=== PATIENT | female | born 1995 | race Caucasian/White ===

== ENCOUNTER → 2022-02-08 14:13 | Outpatient (CLI) | payer BC, SELFPAY ==
--- NOTE | ~2022-02-08 | US_ITS ---
EXAMINATION: US thyroid DATE: 02/08/2022 14:34 INDICATION: Goiter TECHNIQUE: Multiple ultrasound images of the thyroid were obtained. COMPARISON: None. FINDINGS: The right thyroid lobe measures 3.9 x 1.4 x 1.6 cm. The left thyroid lobe measures 4.2 x 1.2 x 1.4 c m. 5 mm solid wider than tall hypoechoic nodule with ill-defined margins and without echogenic foci in the mid right thyroid lobe (TI-RADS 4, moderately suspicious , FNA if >=1.5 cm, annual followup is >=1 cm). There is normal echotexture, echogenicity and vascular flow throughout the thyroid gland. IMPRESSION: 1. 5 mm TI RADS 4 right thyroid nodule which is significantly below threshold for either biopsy or fo llow-up. Recommend clinical followup with repeat imaging if there are changes on physical exam. Reviewed, dictated and finalized at location A. IMPRESSION: 1. 5 mm TI RADS 4 right thyroid nodule which is significantly below threshold f or either biopsy or follow-up. Recommend clinical followup with repeat imaging if there are changes on physical exam.
== END ==
PROVIDERS: PCP Internal Medicine Endocrinology, Diabetes & Metabolism; Visit Provider Internal Medicine Endocrinology, Diabetes & Metabolism
DX: E04.9 Nontoxic goiter, unspecified (principal)
CPT/HCPCS: 76536

== ENCOUNTER 2022-12-03 18:00 | Emergency (ER) | payer OTHER, SELFPAY ==
--- NOTE | ~2022-12-03 | XR_ITS ---
EXAMINATION: XR foot RT min 3V DATE: 12/03/2022 18:20 INDICATION: Dorsal right foot pain after dropping a box on the foot TECHNIQUE: Dorsoplantar, two oblique and lateral views of the right foot were obtained. COMPARISON: None. FINDINGS: Alignment is normal. No fracture. Joint spaces are normal. Soft tissues are unremarkable. IMPRESSION: 1. Negative right foot radiographs. Reviewed, dictated and finalized at location A.
[2022-12-03 18:04] VITALS: BP 149/78; PULSE 105; RESP 17; TEMP 36.9; O2SAT 99
--- NOTE | 2022-12-03 18:05 | ED.GENADULT ---
HPI - General Adult General Chief complaint: Extremity Injury, Lower Stated complaint: R foot injury Time Seen by Provider: 12/03/22 18:04 History of Present Illness HPI narrative: Jennifer is a 27F with no know PMH that presented to the ED after she dropped a box on her foot at work. She had immediate pain and swelling. She has been able to walk. There are no other injuries. Related Data Home Medications Medication Instructions Recorded Confirmed No Home Medications 12/03/22 12/03/22 Allergies Allergy/AdvReac Type Severity Reaction Status Date / Time No Known Allergies Allergy Unverified 12/03/22 18:03 Review of Systems Review of Systems: All systems reviewed & are unremarkable except as noted in HPI and below PMFSH Past Medical History Medical History Bowel habit changes Cholecystectomy planned (~2017) Constipation Diarrhea Outcome of delivery, other multiple , all stillborn Pneumonia Swelling of ankle Tonsillectomy planned (~2001) Surgical History Surgical History History of dilatation and curettage (~2017) [place] teeth removed (~2015) Family History Family History Father Osteoarthritis Essential (primary) hypertension High cholesterol Mother Family history of thyroid problem Sibling Autoimmune disorder Sibling Heart problem Sibling Essential (primary) hypertension Social History Social History Social History: Patient has caffeine once every couple of weeks. 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 [employer] Gender identity (if verbalized by the patient): Female Sexual Orientation (if Verbalized by the Patient): Straight or Heterosexual Exam Const: General: healthy appearing and no acute distress Nutritional Appearance: well nourished Orientation/consciousness: patient oriented x3 Limitations: no limitations HENMT: Head: normal to inspection Ears: external ears normal Face/Nose/Sinus: Normal external nose present Eyes: Conjunctivae: conjunctivae normal Pupils: Equal, round and reactive pupils present EOM: EOMs intact bilaterally Neck: Neck: normal visual inspection Chest: Chest palpation & inspection: normal inspection of the chest Resp: Effort & Inspection: normal respiratory effort Cardio: Rate: regular rate Skin: General skin exam: normal color Rashes: no rashes Neuro: General: patient oriented x3 and moves all extremities Cranial nerves: Yes Nystagmus not present Extrem: Other: Bruising over the 2nd and 3rd MCP on third and fourth digit on right foot. Psych: Mental Status: mental status grossly normal Course Course Emergency Course: declined pain meds ordered radiographs EXAMINATION: XR foot RT min 3V DATE: 12/03/2022 18:20 INDICATION: Dorsal right foot pain after dropping a box on the foot TECHNIQUE: Dorsoplantar, two oblique and lateral? views of the right foot were obtained. COMPARISON: None. FINDINGS: Alignment is normal. No fracture. Joint spaces are normal. Soft tissues are unremarkable. IMPRESSION: 1. Negative right foot radiographs. Vital Signs Vital signs: Vital Signs Temperature 98.5 F 12/03/22 18:04 Pulse Rate 105 H 12/03/22 18:04 Respiratory Rate 12/03/22 18:04 Blood Pressure 149/78 H 12/03/22 18:04 Pulse Oximetry 99 12/03/22 18:04 Oxygen Delivery Room Air 12/03/22 18:04 Temperature 98.5 F 12/03/22 18:04 Pulse Rate 105 H 12/03/22 18:04 Respiratory Rate 17 12/03/22 18:04 Blood Pressure 149/78 H 12/03/22 18:
[2022-12-03 18:50] VITALS: BP 138/73; PULSE 96; RESP 16; TEMP 36.9; O2SAT 100
== END 2022-12-03 18:53 | disposition home or self-care (01) ==
LOC: CHSED 18:50
PROVIDERS: Emergency Provider Family Medicine; PCP Internal Medicine Endocrinology, Diabetes & Metabolism
DX: S90.31XA Contusion of right foot, initial encounter (principal); W20.8XXA Other cause of strike by thrown, projected or falling object, initial encounter; Y92.9 Unspecified place or not applicable; Y99.0 Civilian activity done for income or pay
CPT/HCPCS: 73630; 99283

== ENCOUNTER 2023-08-01 07:18 | Outpatient (CLI) | payer OTHER, SELFPAY ==
[2023-08-01 07:40] LABS: Basophils Absolute Auto 0.03 K/mm3 (0.00-0.10); Basophils Percent Auto 0.5 % (0.0-1.0); Eosinophils Absolute Auto 0.17 K/mm3 (0.02-0.50); Eosinophils Percent Auto 2.9 % (1.0-6.0); Immature Granulocyte Absolute 0.02 K/mm3 (0.00-0.00); Immature Granulocyte Percent A 0.3 % (0.0-0.0); Lymphocytes Percent Auto 30.4 % (18.0-42.0); Mean Corpuscular HGB Conc 33.3 g/dL (32.0-36.0); Mean Corpuscular Hemoglobin 27.6 pg (27.0-31.0); Mean Corpuscular Volume 82.8 fL (78.0-102.0); Mean Platelet Volume 10.2 fl (9.2-11.8); Monocytes Absolute Auto 0.29 K/mm3 (0.10-0.90); Monocytes Percent Auto 4.9 % (2.0-11.0); Neutrophils Absolute Auto 3.6 K/mm3 (1.7-7.2); Platelet Count Result 190 K/mm3 (150-420); Red Blood Count 4.71 M/mm3 (4.20-5.40); White Blood Count 5.9 K/mm3 (4.8-10.8)
[2023-08-01 07:56] LABS: Hemoglobin A1C 4.8 % (<5.7)
[2023-08-01 08:22] LABS: Thyroid Stimulating Hormone Reflex 1.54 u/IU/mL (0.36-3.74)
[2023-08-07 05:52] LABS: Progesterone 0.5 ng/mL (***)
== END 2023-08-01 07:19 | disposition home or self-care (01) ==
PROVIDERS: PCP Family Medicine
DX: E66.01 Morbid (severe) obesity due to excess calories (principal); L65.9 Nonscarring hair loss, unspecified; Z31.9 Encounter for procreative management, unspecified; Z68.42 Body mass index [BMI] 45.0-49.9, adult
CPT/HCPCS: 36415; 83036; 84144; 84443; 85025

== ENCOUNTER 2023-11-19 07:14 | Outpatient (CLI) | payer OTHER, SELFPAY ==
[2023-11-19 08:02] LABS: Hemoglobin A1C < 4.7 % (<5.7)
[2023-11-19 08:19] LABS: Thyroid Stimulating Hormone 1.27 uIU/mL (0.36-3.74)
[2023-11-24 18:03] LABS: Anti Mullerian Hormone,Female 1.41 ng/mL (0.69-13.39)
== END 2023-11-19 07:15 | disposition home or self-care (01) ==
LOC: CHSLAB 07:20
PROVIDERS: PCP Family Medicine
DX: Z13.1 Encounter for screening for diabetes mellitus (principal); Z13.29 Encounter for screening for other suspected endocrine disorder; Z31.41 Encounter for fertility testing
CPT/HCPCS: 36415; 83036; 84443

== ENCOUNTER 2023-12-31 15:58 | Emergency (ER) | payer OTHER, SELFPAY ==
--- NOTE | ~2023-12-31 | XR_ITS ---
EXAMINATION: XR ankle RT min 3V, XR foot RT min 3V DATE: 12/31/2023 16:25 INDICATION: Right foot and ankle injury post fall 3 days prior TECHNIQUE: 1. Anteroposterior, mortise, additional oblique and lateral view of the right ankle were obtained. 2. Dorsoplantar, two oblique and lateral views of the right foot were obtained. COMPARISON: None. FINDINGS: Alignment of the right foot and ankle is normal. No fracture. Small subarticular lucency along the me dial rim of the talar dome with relatively preserved joint space which would favor an osteochondral l esion or degenerative subchondral cyst. Minimal to mild osteoarthritis at the first metatarsophalange al and fifth tarsal metatarsal joints. No ankle joint effusion. Diffuse soft tissue swelling with sub cutaneous edema about the ankle. IMPRESSION: 1. No acute osseous abnormality. 2. Subarticular lucency along the medial margin of the talar dome consistent with likely chronic oste ochondral lesion. Reviewed, dictated and finalized at location B. IMPRESSION: 1. No acute osseous abnormality. 2. Subarticular lucency along the medial margin of the talar dome consistent wi th likely chronic osteochondral lesion.
[2023-12-31 16:12] VITALS: BP 125/76; PULSE 55; RESP 16; TEMP 36.7; O2SAT 100
--- NOTE | 2023-12-31 16:13 | ED.LOWEXIN ---
HPI - Extremity Injury (Lower) General Chief Complaint: Extremity Injury, Lower Stated Complaint: R FOOT INJURY Source: patient Mode of arrival: ambulatory Limitations: no limitations History of Present Illness HPI Narrative: 28 y/o female presented for c/o right foot/ankle pain, swelling and bruising after injury 3 days ago. states she fell through wooden stairs, says she was on the last few. Has been ambulating but reports a limp. Swelling worsens throughout the day. Has been trying to elevate and ice. Rates pain /10. denies decreased ROM, numbness, tingling, weakness or deformity. Not taking anything for pain. Denies other injury. Related Data Home Medications Medication Instructions Recorded Confirmed No Home Medications 12/03/22 12/03/22 Allergies Allergy/AdvReac Type Severity Reaction Status Date / Time No Known Allergies Allergy Unverified 12/03/22 18:03 Review of Systems Review of Systems: CONSTITUTIONAL: Denies body aches, fever, chills CARDIOVASCULAR: Denies chest pain, palpitations, or edema. RESPIRATORY: Denies cough or dyspnea. SKIN: Denies rash, itching, or wounds. MUSCULOSKELETAL: right ankle pain and swelling NEUROLOGIC: Denies headache, numbness, tingling, or weakness. All systems reviewed & are unremarkable except as noted in HPI and below PMFSH Past Medical History Medical History Bowel habit changes Cholecystectomy planned (~2017) Constipation Diarrhea Outcome of delivery, other multiple , all stillborn Pneumonia Swelling of ankle Tonsillectomy planned (~2001) Surgical History Surgical History History of dilatation and curettage (~2017) [place] teeth removed (~2015) Family History Family History Father Osteoarthritis Essential (primary) hypertension High cholesterol Mother Family history of thyroid problem Sibling Autoimmune disorder Sibling Heart problem Sibling Essential (primary) hypertension Social History Social History Social History: Patient has caffeine once every couple of weeks. 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 Please see nursing chart for further information. There is no relevant family history pertinent to the presenting complaint Exam Narrative: GENERAL: Well-appearing CHEST: Speaks in full sentences. No respiratory distress. HEART: Regular rate and rhythm. Normal and equal peripheral pulses. EXTREMITIES: Pain reported to posterior/lateral right ankle, tender with palpation over lateral malleolus. Moderate ecchymosis noted from lower lateral leg to lateral foot. Swelling to lateral ankle. Right foot and ankle has normal strength and sensation, normal range of motion with flexion/extension/rotation of ankle. No open wounds, or obvious deformity; alignment normal, pulse palpable and equal bilaterally, skin warm, dry, pink. Capillary refill less than 3 seconds. SKIN: Warm, dry NEURO: Alert and oriented x3. PSYCH: Normal mood and affect Course Course Emergency Course: Patient is aware of diagnosis, understands and agrees to treatment plan. Anticipatory guidance given. Patient agrees to follow-up as directed and is aware of reasons to seek care at the emergency department. Portions of
== END 2023-12-31 16:44 | disposition home or self-care (01) ==
PROVIDERS: Emergency Provider Nurse Practitioner Family
DX: S93.401A Sprain of unspecified ligament of right ankle, initial encounter (principal); S96.911A Strain of unspecified muscle and tendon at ankle and foot level, right foot, initial encounter; W13.8XXA Fall from, out of or through other building or structure, initial encounter
CPT/HCPCS: 73610; 73630; 99213; G0463

== ENCOUNTER 2024-02-07 15:29 | Outpatient (CLI) | payer OTHER, SELFPAY | END 2024-02-07 15:30 | disposition home or self-care (01) | DX: Z32.00 Encounter for pregnancy test, result unknown (principal) | CPT/HCPCS: 36415; 84702 ==

== ENCOUNTER 2024-02-12 15:43 | Outpatient (CLI) | payer OTHER, SELFPAY | END 2024-02-12 15:44 | disposition home or self-care (01) | LOC: CHSLAB 15:48 | DX: Z32.00 Encounter for pregnancy test, result unknown (principal) | CPT/HCPCS: 36415; 84702 ==

== ENCOUNTER 2024-04-03 07:20 | Outpatient (CLI) | payer OTHER, SELFPAY ==
[2024-04-03 07:43] LABS: Hematocrit 34.4 % (35.0-49.0); Hemoglobin 12.4 g/dL (12.0-15.0); Mean Corpuscular Hemoglobin 30.2 pg (27.0-31.0); Mean Corpuscular Volume 83.7 fL (78.0-102.0); Mean Platelet Volume 10.6 fl (9.2-11.8); Platelet Count Result 145 K/mm3 (150-420); Red Blood Count 4.11 M/mm3 (4.20-5.40); Red Cell Distribution Width 13.9 % (11.6-14.4); White Blood Count 5.4 K/mm3 (4.8-10.8)
[2024-04-03 08:41] LABS: Hemoglobin A1C 4.8 % (<5.7)
[2024-04-03 10:19] LABS: Alanine Aminotransferase 32 U/L (14-59); Albumin Level 2.8 g/dL (3.4-5.0); Alkaline Phosphatase 70 U/L (46-116); Anion Gap 11 mmol/L (4-12); Aspartate Amino Transferase 16 U/L (15-37); Bilirubin,Total 0.5 mg/dL (0.00-1.00); Blood Urea Nitrogen 5 mg/dL (7-18); Calcium 8.5 mg/dL (8.5-10.1); Carbon Dioxide 22 mmol/L (21-32); Chloride 102 mmol/L (98-108); Cholesterol 234 mg/dL (0-200); Estimated Glomerular Filt Rate > 60; Glucose 102 mg/dL (70-99); HDL Direct 59 mg/dL (40-60); LDL Cholesterol Calculated 136 mg/dL (<130); Osmolality Calculated 277 mOsm/kg (285-295); Potassium 3.4 mmol/L (3.5-5.1); Sodium 135 mmol/L (136-145); Thyroid Stimulating Hormone 1.31 uIU/mL (0.36-3.74); Total Protein 6.1 g/dL (6.4-8.2); Triglycerides 197 mg/dL (0-150)
[2024-04-03 10:27] LABS: HIV 1 P24 AG Negative (Negative); HIV 1/2 AB Negative (Negative)
[2024-04-04 10:28] LABS: Hepatitis B Surface Antigen NON-REACTIVE (NON-REACTIVE); Hepatitis C Virus Antibody NON-REACTIVE (NON-REACTIVE)
[2024-04-05 11:09] LABS: TSH QUEST 1.36 mIU/L
[2024-04-06 18:44] LABS: RPR Screen NON-REACTIVE (NON-REACTIVE)
[2024-04-07 03:53] LABS: Rubella IgG Antibody 1.64 Index
[2024-04-07 23:49] LABS: Varicella IgM Antibody 0.83
[2024-04-11 19:19] LABS: Varicella IgG Antibody <1.00 S/CO
== END 2024-04-03 07:21 | disposition home or self-care (01) ==
PROVIDERS: Visit Provider Family Medicine
DX: E66.01 Morbid (severe) obesity due to excess calories (principal); Z79.899 Other long term (current) drug therapy; Z13.220 Encounter for screening for lipoid disorders
CPT/HCPCS: 36415; 80053; 80061; 83036; 84443; 84481; 85027; 86376; 86592; 86762; 86787; 86803; 86850; 86900; 86901; 87340; 87806

== ENCOUNTER 2024-07-04 07:25 | Outpatient (CLI) | payer OTHER, SELFPAY | END 2024-07-04 07:26 | disposition home or self-care (01) | PROVIDERS: PCP Family Medicine | DX: Z34.80 Encounter for supervision of other normal pregnancy, unspecified trimester (principal) | CPT/HCPCS: 36415; 86850; 86900; 86901 ==

== ENCOUNTER 2024-07-10 07:12 | Outpatient (CLI) | payer OTHER, SELFPAY ==
[2024-07-10 08:34] LABS: Hematocrit 32.3 % (35.0-49.0); Hemoglobin 11.1 g/dL (12.0-15.0); Mean Corpuscular HGB Conc 34.4 g/dL (32-36); Mean Corpuscular Hemoglobin 29.9 pg (27.0-31.0); Mean Corpuscular Volume 87.1 fL (78.0-102.0); Mean Platelet Volume 10.5 fl (9.2-11.8); Platelet Count Result 150 K/mm3 (150-420); Red Blood Count 3.71 M/mm3 (4.20-5.40); Red Cell Distribution Width 12.9 % (11.6-14.4); White Blood Count 6.5 K/mm3 (4.8-10.8)
[2024-07-10 09:42] LABS: Glucose 1 Hour PP 50gm Dose 102 mg/dL (70-130)
== END 2024-07-10 07:13 | disposition home or self-care (01) ==
LOC: CHSLAB 07:16
PROVIDERS: PCP Family Medicine
DX: Z34.80 Encounter for supervision of other normal pregnancy, unspecified trimester (principal)
CPT/HCPCS: 36415; 82947; 85027; 86592

== ENCOUNTER 2024-12-17 19:16 | Emergency (ER) | payer OTHER, SELFPAY ==
--- NOTE | ~2024-12-17 | XR_ITS ---
XR ankle RT min 3V Ordering provider: Stan Alston MD History: . leg and ankle injury . Comparison: None. FINDINGS: BONES: No acute fracture or dislocation. Lucency seen in the medial aspect of the talus which may ind icate osteoid osteoma versus osteochondral lesion JOINT SPACES: Normal. SOFT TISSUES: Normal. IMPRESSION: No acute osseous abnormality of the right ankle. Lucency in the medial aspect of the dome of the talus. Differential include osteoid osteoma and osteo chondral lesion. Reviewed, dictated and finalized at location A. IMPRESSION: No acute osseous abnormality of the right ankle. Lucency in the medial aspect of the dome of the talus. Differential include ost eoid osteoma and osteochondral lesion.
--- NOTE | ~2024-12-17 | XR_ITS ---
XR tibia fibula RT 2V Ordering provider: Stan Alston MD History: . right leg and ankle injury . Comparison: None. FINDINGS: BONES: No acute fracture or dislocation. Lucency in the dome of the talus medially. JOINT SPACES: Normal. SOFT TISSUES: Normal. IMPRESSION: No acute osseous abnormality right leg. Lucency in the dome of the talus. Reviewed, dictated and finalized at location A.
--- OUTSIDE RECORDS SUMMARY | 2024-12-17 19:18 | XMS_ITS | Clinical Summary ---
Author Organization [facility] Address [facility] [place] [address] Care Team Providers Care Sales Analytics Manager Name Role Phone Lenny Mckee MD Unavailable [phone] Mark Flores MD Primary Care Provider [phone] Allergies Active Allergy Reactions Criticality Noted Date Comments Adhesive Rash Medium 10/14/2024 Medications [id number] c acid 29 mg iron- 1 mg tablet,chewable Take by mouth Active acetaminophen 500 mg capsule Take 2 capsules (1,000 mg total) by mouth every 6 (six) hours as needed for pain 60 tablet 5 Active docusate sodium (COLACE) 100 mg capsuleIndicati ons:constipatio n,Stool Softener Take 1 capsule (100 mg total) by mouth 2 (two) times a day as needed for constipation 30 capsule 5 Active ibuprofen (ADVIL,MOTRIN) 600 mg tabletIndicatio ns:Cramps Take 1 tablet (600 mg total) by mouth every 6 (six) hours as needed for pain 60 tablet 5 Active polyethylene glycol (MIRALAX) 17 gram/dose bulk powder Take 17 g by mouth daily as needed (constipation) 289 g 5 Active Active Problems Problem Noted Date Diagnosed Date Encounter for induction of labor 10/14/2024 Overview (10/14/2024): Georgie Mercado is a 29 y.o. female at 39w1d who is dated by LMP and is being admitted for an elective induction of labor. Admit to L&D: Labs: CBC and T&S pending. Induction of labor with pitocin. Titrate according to protocol. Desires epidural. FWB: Continuous monitoring. tracing category I. EFW: 3118g, 74% (09/24), placenta anterior, no previa ID: 3rd trimester HIV (>28 wga) negative on 09/24. GBS negative on 09/24 . RPR on admission: pending. History of genital HSV or HSV 1/2 seropositivity: No. Membrane Status: intact. PNL: Rh [pos], Ab [neg], Rubella [Imm], Varicella [Nonimm], HIV [NR], RPR [NR], HepBSAg [NR], Hep C [NR], GC/CT [neg/neg] Indications for UDS: none. Verbal consent obtained for UDS: Not indicated. MOF: Plans to breastfeed. Urine drug screen not indicated. Patient informed of results: N/A. MOC: Not currently interested in contraception, this was conceived via Letrozole. Pain management: Desires epidural. Post DVT prophylaxis: The patient has the following MAJOR risk factors BMI >/= 40 and the following MINOR risk factors none. enoxaparin 40 mg daily will be ordered for VTE prophylaxis . care following vaginal delivery 10/14 Overview (10/16/2024): # ID: Afebrile. No signs/symptoms of infection. #VZV NI: varivax given 10/15. # Heme: Hgb 10.6> QBL 347 mL. Hemodynamically stable. # CV/Pulm: Elevated BPx2, not meeting criteria for gHTN. One MR BP on arrival but in setting of wrong size cuff, other intrapartum during pushing. # GI/: Tolerating PO. Voiding spontaneously. # Pain: Controlled with above regimen. # MOC: Declines s/p counseling. # MOF: . Urine drug screen not indicated. Patient informed of results: N/A. # Post DVT prophylaxis: The patient has the following MAJOR risk factors BMI >/= 40 and the following MINOR risk factors none. enoxaparin 40 mg BID ordered for VTE prophylaxis. # Disposition: Follow up to be scheduled with primary OB. Desires discharge home today. Service Coverage These phones are service phones and carried 28/01 in house: R1 (first call) [phone] R1 alt (second call) [phone] R4 (Chief) [phone] Supervision of other normal , antepartu m 03/30/2024 Overview (10/08/2024): -2018-IUFD @ 22wks, D&E--records in media, no abnormalities noted -SHIKHA pt, ?LTZ -BMI >40 -serial growths @ 28 wks-->scheduled -NSTs weekly @ 34 wks-->scheduled -PT endorses her sister's main heart vessels switched and needed surgery-for echo, normal on 07/23 -VZV NI -mild gTCP @ NOB plts 145K -mild kidney dilation noted @ 28wks, @ 32wks The left renal pelvis measures 8.1 mm, consistent with UTDA1 -- needs a evaluation. IOL sched 10/14/24 @ 0800, pt aware [x] Initial BMI: 45.26 [x] Labs: completed [x] Genetic Screening: considering cfdna-->did not pursue [x] Baby ASA: yes @ 12wks [x] 1hr GCT at 24-28wks: 102 [x] Tdap (27-36wks): 07/30/2024 [x] Flu Shot: received at work 04/15/24 [] RSV Vaccine in season (32.0-36.6): out of season [x] COVID vaccine: Vaccinated, counseled on updated vaccine [] Rhogam (if Rh neg): n/a A+ [x] GBS at 36 wks: neg [x] [x] control method: declines [x] 39 weeks discussion of IOL vs. Expectant management: 39wk IOL [x] Mode of delivery: anticipate [] For C/S bottle of CHG 4% and hand out provided @ 36wks Girl, , has family ped Teaching: [x] 1st visit [x] 28-30 week [x] 36 week HPV Vaccine counseling (<=26 yo): [] Completed vaccine series [] To be ordered prior to discharge on [] To receive at visit [] Declined s/p counseling [x] Not applicable Initial BMI 40-50 (gestational weight goal <15lbs) 1st visit: [x] Early HgbA1c and TSH [] Order specialized anatomy for 20-22wks [] 1mg folic acid and ASA @ 12wks [] ISAURO eval (referral if indicated) [] Discuss risks and limitations of cfDNA 3rd trimester/delivery: [] 28wk glucola [] Serial growth US (q4wks) @ 28wks [] Weekly NSTs @ 34wks [] 39 wk delivery recommended [] 2g or 3g Ancef (dependent on weight @ delivery) : [] Nutrition/exercise counseling (dot phrase ACOGHEALTHYEATING and dot phrase ACOGEXERCISEAFTERPREGNANCY) Assessment & Plan (04/01/2024 1:41 PM CDT): - TAUS for viability completed today - labs ordered - Pap smear NILM 08/2020, screening performed today - GC/CT/trichomonas offered and declined - [place] Depression Scale Total: 0 - Reviewed criteria for ASA 81mg: Minor Criteria (2+ required for Dx): Obesity (BMI > 30) and Previous adverse outcome - Flu and Covid vaccination recommendations reviewed, is planning on getting labs through work - Genetic testing options reviewed, recommended NIPT, considering, would like to discuss with - Specialized anatomy US ordered and plan for echo based on family hx - Education on care and expectations also provided by OB RN Krystal Hair loss 07/15/2023 Overview (07/15/2023): - patient reports 1 year of hair loss, starting around time of last delivery - also reports abnormal thyroid testing with PCP, unable to visualize results - Discussed normal hair loss and that it can persist up to 1 year after delivery - Will assess with TSH given other symptoms (fatigue, weight changes) 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 She has never had a pelvic US outside of to assess for PCOM and is not interested in pursuing formal PCOS diagnosis at this time. Plan - clomid 50 daily on cycle days 5-9 - Will order TSH, CBC, and progesterone to confirm ovulation. Counseled patient to present for lab draw 7-10 days after ovulation. - continue vitamin Morbid obesity with BMI of 45.0-49.9, adult ([facility]) 08/12/2020 Overview (07/15/2023): - BMI 45 at visit on 07/15/23 - Will assess A1c given TTC Assessment & Plan (04/01/2024 1:20 PM CDT): Plan for baseline labs with labs Monitor weight gain in the Growth US starting at 28 weeks, NSTs at 34 wks Plan for IOL at 39 wks Resolved Problems Problem Noted Date Diagnosed Date Resolved Date Normal labor and delivery 06/12/2022 Overview (06/12/2022): 1. Induction of labor for DFM at term: Admit to L&D. Consents signed and placed in chart. Labs: CBC, Type Pending. Induction of labor with cervidil. 2. FWB: Continuous monitoring. tracing category II, reassured by accelerations 3. ID: 3rd trimester HIV (>28 wga) pending on 04/12/2022. GBS negative on 05/24/2022. RPR on admission: pending. Membrane Status: intact. 4. Indications for UDS: unexplained demise. Verbal consent obtained for UDS: Not indicated 5. MOF: Plans to breastfeed. Urine drug screen not indicated. Patient informed of results: N/A 6. MOC: Undecided on contraception. 7. Pain management: Desires epidural when indicated. 8. Post DVT prophylaxis: The patient has the following MAJOR risk factors BMI >/= 40 and the following MINOR risk factors none. enoxaparin 40 mg daily will be ordered for VTE prophylaxis . 9. COVID Vaccine Status: Not assessed 10. COVID Test Status: Test not indicated 11. IUFD at 22 weeks 12. Rhino virus + 06/07/2022 care following vaginal delivery 06/12/2022 07/25/2022 Overview (06/14/2022): # ID: Afebrile. No signs/symptoms of infection. #COVID-19: Test not indicated #Rubella NI: for PP MMR #Varicella NI: For PP Varivax # Heme: EBL 700 mL. No symptoms acute blood loss anemia. # CV/Pulm: Vital signs stable, within normal limits. # GI/: Tolerating PO. Voiding spontaneously. # Pain: Controlled with above regimen. # Post DVT prophylaxis: The patient has the following MAJOR risk factors BMI >/= 40 and the following MINOR risk factors none. enoxaparin 40 mg BID to be ordered for VTE prophylaxis PPD1. # MOC: Progestin-only pills # MOF: . Urine drug screen not indicated. Patient informed of results: N/A. # COVID Vaccination Status: Previously received # Disposition: Follow up task not sent. Desires discharge home today. Supervision of other normal , antepartum 11/13/2021 07/25/2022 Overview (06/07/2022): -2018-IUFD @ 22wks, D&E--records in media, no abnormalities noted -Rubella non-immune Varicella non-immune -BMI >40 -serial growth's 28 wks, 41% 04/12, next growth 06/07 -NST's weekly @ 34 wks -PT endorses her sister's main heart vessels switched and needed surgery - echo ordered, declined to schedule when echo team reached out -IOL sched 06/14/2022 @ 2100, pt aware [x] Initial BMI: 46.56 protocol below [x] Labs: complete [x] Genetic Screening: declines [x] Baby ASA: @ 12 weeks [x] 1hr GCT at 24-28wks: nml, 108 [x] Tdap (27-36wks): MJ 04/12/22 [x] Flu Shot: 04/12/22 [x] COVID vaccine: complete per report, NO booster [] Rhogam (if Rh neg): N/A A+ [x] GBS at 36 wks:Negative [x] [] control method: [x] 39 weeks discussion of IOL vs. Expectant management: 39wk IOL [x] Mode of delivery: anticipate [] For C/S bottle of CHG 4% and hand out provided @ 36wks , boy, circ+, [facility] pediatrics Teaching: [x] 1st visit [x] 28-30 week [x] 36 week Initial BMI 40-50 (gestational weight goal <15lbs) 1st visit: [x] Early HgbA1c and TSH [x] Order specialized anatomy for 22wks [x] 1mg folic acid and ASA @ 12wks [x] ISAURO eval (not indicated)- confirms rare snoring and never stops breathing at night [x] Discuss risks and limitations of cfDNA- declines testing 3rd trimester/delivery: [x] 28wk glucola [x] Serial growth US (q4wks) @ 28wks [x] Weekly NSTs @ 34wks [] 39 wk delivery recommended [] 2g or 3g Ancef (dependent on weight @ delivery) : [x] Nutrition/exercise counseling (dot phrase ACOGHEALTHYEATING and dot phrase ACOGEXERCISEAFTERPREGNANCY) Irregular periods 08/12/2020 08/03/2021 Encounters Date Type Department Care Team Description 10/22/2024 Telephone [facility] Obstetrics and Gynecology [address] [facility] [address] [address] [place] [address] Dharmesh Moreno, ALICIA OB concern 10/16/2024 Telephone [facility] Obstetrics and Gynecology [address] [facility] [address] [facility] [address] [place] [address] Kayy Valencia 10/14/2024 2:01 PM CDT Anesthesia Event [address] [address] Malachi Petersen MD Schappe, Elizabedanie Urban, GAVIN 10/14/2024 8:30 AM CDT - 10/16/2024 6:12 PM CDT Hospital Encounter [address] [phone] Key Louie MD Whelan, MD Nathan Barnes, Santana Munoz MD Discharge Disposition: Discharge to home or self care 10/12/[address] [address] Virgie Dunn RN Outgoing Call 10/08/2024 10:00 AM CDT Clinical Support [facility] Obstetrics and Gynecology [address] [place] [address] 10/08/2024 9:45 AM CDT Office Visit [facility] Obstetrics and Gynecology [address] [place] [phone] Supervision of other normal , antepartum (Primary Dx); 38 weeks gestation of 10/08/2024 9:00 AM CDT Clinical Support [facility] Obstetrics and Gynecology [address] [place] [phone] Supervision of other normal , antepartum (Primary Dx); Morbid obesity with BMI of 45.0-49.9, adult (CMS/HCC) (HCC) 10/01/2024 3:30 PM CDT Office Visit [facility] Obstetrics and Gynecology [address] [place] [phone] Supervision of other normal , antepartum (Primary Dx) 10/01/2024 3:00 PM CDT Clinical Support [facility] Obstetrics and Gynecology [address] [place] [phone] Morbid obesity with BMI of 45.0-49.9, adult (CMS/HCC) (HCC) (Primary Dx); Supervision of other normal , antepartum 09/27/2024 Results Follow-Up [address] [place] [address] Jani Licona MD Group B streptococcal culture Vaginal/Rectal 09/24/2024 1:56 PM CDT - 09/24/2024 11:59 PM CDT Hospital Encounter [facility] [address] [place] [address] Supervision of other normal , antepartum Discharge Disposition: Discharge to home or self care 09/24/2024 12:35 PM CDT Lab [facility] [address] [place] [phone] Supervision of other normal , antepartum 09/24/2024 11:45 AM CDT Office Visit [facility] Obstetrics and Gynecology [address] [place] [address] Health 7th Floor [address] [place] [phone] Supervision of other normal , antepartum (Primary Dx); Other obesity affecting in third trimester; 36 weeks gestation of 09/24/2024 10:51 AM CDT - 09/24/2024 11:59 PM CDT Hospital Encounter [facility] Outpatient [facility] - Ultrasound [address] [place] [address], 7th Floor, [address] [place] [address] Supervision of other normal , antepartum Discharge Disposition: Discharge to home or self care 09/24/2024 Results Follow-Up [facility] [address] [place] [address] Jani Licona MD HIV 1/2 Antibody plus p24 Antigen Blood, CBC without differential 09/17/2024 9:30 AM CDT Clinical Support [facility] Obstetrics and Gynecology [address] [place] [address] [address]th [place] [address] History of IUFD (Primary Dx); Supervision of other normal , antepartum; Morbid obesity with BMI of 45.0-49.9, adult (CMS/HCC) ([facility]) from Last 3 Months Immunizations Immunization Administration Dates Next Due Influenza, Quadrivalent, Blaire l Culture-based MDCK, Preservative Free, Antibiotic Free, Intramuscular 04/12/2022 Influenza, Trivalent, High D ose, Split, Preservative Free, Intramuscular 07/08/2014 MMR 06/14/2022 Tdap 07/30/2024,04/12/2022 Varicella 10/15/2024,06/14/2022 Surgical History Surgery Date Site/Laterality Comments WISDOM TOOTH EXTRACTION 07/08/2014 - 07/07/2015 DILATION AND CURETTAGE OF UTERUS 07/08/2017 - 08/07/2017 at time of delivery of IUFD CHOLECYSTECTOMY 07/08/2017 - 07/07/2018 [facility] [place] History Medical History Date Comments Palpitation History of IUFD Thyroid disease Ovarian cyst Gallstones Family History Medical History Relation Name Comments Hypertension Father Osteoporosis Father Diabetes Mother Hypertension Mother Obesity Mother Blood Clot Other Heart disease Other Relation Name Status Comments Father Mother Other Social History Tobacco Use Types Packs/Day Years Used Date Smoking Tobacco: Never Smokeless Tobacco: Never Tobacco Cessation:Counseling Given: Not Answered Alcohol Use Standard Drinks/Week Comments Yes 0 (1 standard drink = 0.6 oz pur e alcohol) social [employer] Utilities Answer Date Recorded In the past 12 months has [employer], gas, oil, or water [employer] threatened to shut off services in your home? No 10/15/2024 Social Connection and Isolat ion Panel [NHANES] Answer Date Recorded In a typical week, how many times do you talk on the phone with family, friends, or neighbors? More than three times a week 10/15/2024 How often do you get togethe r with friends or relatives? Three times a week 10/15/2024 How often do you attend [facility] or gnosticism services? Never 10/15/2024 Do you belong to any clubs o r organizations such as moravian groups, unions, fraternal or athletic groups, or school groups? No 10/15/2024 How often do you attend meet ings of the clubs or organizations you belong to? Never 10/15/2024 Are you , , di vorced, , never , or living with a partner? 10/15/2024 AUDIT-C Answer Date Recorded Q1: How often do you have a drink containing alcohol? Never 04/01/2024 Q2: How many drinks containi ng alcohol do you have on a typical day when you are drinking? Patient does not drink Q3: How often do you have si x or more drinks on one occasion? Never 04/01/2024 Overall Financial Resource Strain (CARDIA) Answe r Date Recorded How hard is it for you to pa y for the very basics like food, housing, medical care, and heating? Not hard at all 10/15/2024 Hunger Vital Sign Answer Date Recorded Within the past 12 months, y ou worried that your food would run out before you got the money to buy more. Never true 10/16/19 25 Within the past 12 months, t he food you bought just didn't last and you didn't have money to get more. Never true 10/15/2024 PRAPARE - Transportation Answer Date Re corded In the past 12 months, has l ack of transportation kept you from medical appointments or from getting medications? No 10/06 In the past 12 months, has l ack of transportation kept you from meetings, work, or from getting things needed for daily living? No 10/15/2024 Housing Stability Vital Sign Answer Jcarlos e Recorded In the last 12 months, was t here a time when you were not able to pay the mortgage or rent on time? No 06/13/2022 In the last 12 months, how many places have you lived? 1 06/13/2022 In the last 12 months, was t here a time when you did not have a steady place to sleep or slept in a alf (including now)? No 06/13/2022 [place] Depression Scale Answer Date Recorded [place] Depression Scale Total 0 04/01/2024 The thought of harming myself has occurred to me . Never 04/01/2024 Housing Stability Vital Sign Answer Jcarlos e Recorded In the last 12 months, was t here a time when you were not able to pay the mortgage or rent on time? No 10/15/2024 In the past 12 months, how m any times have you moved where you were living? 0 10/15/2024 At any time in the past 12 m [facility], were you homeless or living in a alf (including now)? No 10/15/2024 Personal Safety Answer Date Recorded Have you ever been in or are you currently in a harmful physical or emotional relationship or is someone making you feel afraid or unsafe? 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 Not on file Not on file Not on file Obstetrics History Para Term AB IAB SAB Ectopic Multiple Livin g Live Births 3 3 2 1 0 0 0 0 0 2 2 Date Outcome GA Total Labor Labor/2nd/3rd Weight Sex Type Anes PTL Earline A1 A5 Name Clin 2018 22w 0d F D&E Demis e 2021 Term 39w 0d 0h 40m 0h 34m/0h 06m 3.03 kg (6 lb 10.9 oz) M Vag-Sp ont Epidur al N Livin g 8 8 WRIGL EYHEM Michelle STREETER, Bee Parnell MD Complications: Intolera nce Delivery Location:[facility] ([facility]) 2024 Term 39w 1d 0h 11m 0h 03m/0h 08m 3.37 kg (7 lb 6.9 oz) M Vagina l Epidur al N Livin g 8 9 GirlJ illia n Wrigl ey Heman n Zuhair raphael, Arelis ballard MD Delivery Location:[facility] ([facility]) Comments 2021-TS- baby boy Magdalena y presented with DFM. complicated by history of 22 week IUFD, RNI, VNI, BMI 46. 2nd degree lacs [id number] baby girl Ela ebl 300 2nd degree tear Summary Episode Dates Number of Fetuses Estimated Date of Delivery 03/30/2024 - Present (12/17/2024) 1 10/20/2024 (based on Alternate DENY Entry) Dating Summary Based On DENY GA Diff Last Menstrual Period on 09/15/2023 06/21/2024 +17w2d Alternate DENY Entry 10/20/2024 Working Comment:Date entered prior t o episode creation Vitals Pregravid Weight Height TWG (As of 12/17/2024) Pregrav id BMI 123.4 kg (272 lb) 165 cm (5' 4.96) 1.622 kg (3 lb 9.2 oz) 45.32 Date GA Fund Present FHR Mvmt BP Weight Edema Alb Glu Ket Dil/ Eff/Sta 4 21w2d Inpatient data not displayed here. See encounter summary. 5 28w2d Inpatient data not displayed here. See encounter summary. 5 32w2d Inpatient data not displayed here. See encounter summary. 5 36w2d Inpatient data not displayed here. See encounter summary. 5 39w1d Inpatient data not displayed here. See encounter summary. Notes Progress Notes - Hospital En counter - 10/16/2024 - GA:39w1d 10/16/2024 - 39w1d - Rocío Banda NP Post Progress Note Admission Date: 10/14/2024 SUBJECTIVE Georgie Mercado is a 29 y.o. day 2 s/p Vaginal. Pain: Controlled Bleeding: lochia minimal Oral Intake: taking regular diet Voiding: without difficulty Bowel function: flatus and bowel movement Ambulating: yes Mood: stable Feeding: No acute events overnight. Denies MICHELE, visual changes, chest pain, SOB, or RUQ pain. Denies lightheaded or dizziness. Patient reports feeling well and denies concern for discharge today. OBJECTIVE Vitals: Temp Min: 36.6 C (97.9 F) Max: 36.9 C (98.4 F) Pulse Min: 83 Max: 91 BP Min: 114/57 Max: 124/71 Resp Min: 16 Max: 18 SpO2 Min: 94 % Max: 97 % Physical Exam General: No acute distress. Neurologic: Alert and oriented Lungs: Non-labored. Abdomen: Soft, non distended, appropriately tender to palpation. Fundus firm below umbilicus. Extremities: Warm and well-perfused. trace bilateral lower extremity edema with no calf tenderness. Pelvic: Deferred. Lab Review: Lab Results Component Value Date WBC 6.88 10/14/2024 HGB 10.6 (L) 10/14/2024 HCT 32.2 (L) 10/14/2024 MCV 80.9 (L) 10/14/2024 LABPLAT 190 10/14/2024 Lab Results Component Value Date ABORH A Positive 10/14/2024 IDCOOMB Negative 10/14/2024 [id number] Nonreactive 09/24/2024 [id number] NON-REACTIVE 11/18/2021 [id number] Nonreactive 04/03/2024 LABRPR Nonreactive 10/14/2024 SCRRPR Non-Reactive 07/10/2024 RUBELIGG <0.90 (L) 11/18/2021 SCRRUBELIGG Immune 04/03/2024 HEPBSAG Nonreactive 06/12/2022 GBS neg 05/24/2022 VZVIGG <135.00 (L) 11/18/2021 Current Meds: Scheduled Medications acetaminophen, 1,000 mg, oral, Q6H VADIM docusate sodium, 100 mg, oral, BID enoxaparin, 40 mg, subcutaneous, Q12H VADIM viatmin, 1 tablet, oral, Daily polyethylene glycol, 17 g, oral, Daily sodium chloride 0.9%, 0.5-20 mL, intra-catheter, Q8H VADIM (ALT) PRN Medications benzocaine-menthoL calcium carbonate sodium chloride 0.9% diphenhydrAMINE hydrocortisone ibuprofen xxwfgao-jhrea-cnzaljp nalbuphine naloxone ondansetron ODT OR ondansetron sodium chloride 0.9% ASSESSMENT/PLAN Georgie Mercado is a 29 y.o. female day 2 s/p Vaginal. Problem Care Following Vaginal Delivery # ID: Afebrile. No signs/symptoms of infection. #VZV NI: varivax given 10/15. # Heme: Hgb 10.6> QBL 347 mL. Hemodynamically stable. # CV/Pulm: Elevated BPx2, not meeting criteria for gHTN. One MR BP on arrival but in setting of wrong size cuff, other intrapartum during pushing. # GI/: Tolerating PO. Voiding spontaneously. # Pain: Controlled with above regimen. # MOC: Declines s/p counseling. # MOF: . Urine drug screen not indicated. Patient informed of results: N/A. # Post DVT prophylaxis: The patient has the following MAJOR risk factors BMI >/= 40 and the following MINOR risk factors none. enoxaparin 40 mg BID ordered for VTE prophylaxis. # Disposition: Follow up to be scheduled with primary OB. Desires discharge home today. Service Coverage These phones are service phones and carried 28/01 in house: R1 (first call) [phone] R1 alt (second call) [phone] R4 (Chief) [phone] ASAEL Pruitt 10/16/24 Cosigned by Lucy Diaz MD at 10/16/2024 11:41 AM CDT Associated attestation - Lucy Diaz MD - 10/16/2024 11:41 AM CDT I have seen and examined the patient on 10/16/24. I agree with the findings and plan of care as documented in DRY CLEANING SUPERVISOR Rocío Banda' note. Georgie is a 29 y.o. female s/p vaginal delivery with second degree laceration at 39w1d on 10/15. She is PPD#2 and meeting her milestones. She received Varivax yesterday. She is formula feeding and plans for condoms for contraception. Anticipate plan for discharge home today. Discharge instructions reviewed with the patient as well as expectations for state and precautions for when to return. Lucy Diaz MD 10/15/2024 - 39w1d - Anna Means MD Post Progress Note Delivery Date/Time: 10/14/2024t 6:50 PM Delivery method: Vaginal [[id number]] 29 y.o. PPD#1 from . Subjective Flatus: Yes Pain: Well controlled Diet: Tolerating regular diet. Ambulating independently Voiding spontaneously Lochia greater than menses A little bit of cramping but otherwise doing well! Scheduled Medications acetaminophen, 1,000 mg, oral, Q6H VADIM docusate sodium, 100 mg, oral, BID enoxaparin, 40 mg, subcutaneous, Daily-2100 viatmin, 1 tablet, oral, Daily polyethylene glycol, 17 g, oral, Daily sodium chloride 0.9%, 600 mL, intravenous, Once sodium chloride 0.9%, 0.5-20 mL, intra-catheter, Q8H VADIM (ALT) PRN Medications benzocaine-menthoL calcium carbonate sodium chloride 0.9% diphenhydrAMINE hydrocortisone ibuprofen oqtnuks-zplgp-uaeozly nalbuphine naloxone ondansetron ODT OR ondansetron sodium chloride 0.9% varicella zoster Vitals: Temp: [36.6 C (97.9 F)-37 C (98.6 F)] 36.6 C (97.9 F) Pulse: [53-116] 63 BP: (97-141)/(53-90) 124/58 Resp: [16-18] 16 SpO2: [90 %-100 %] 100 % Intake/Output Summary (Last 24 hours) at 10/15/2024 0659 Last data filed at 10/14/20242011 Gross per 24 hour Intake -- Output 797 ml Net -797 ml Physical Exam General: No acute distress. Cardiovascular: Regular rate and rhythm. Lungs: Non-labored. Abdomen: Soft, non-distended, non-tender to palpation. Fundus below umbilicus. Extremities: Warm and well-perfused. Neuro: Globally intact Recent Labs Lab Units 10/14/24 0947 WBC K/cumm 6.88 HEMOGLOBIN g/dL 10.6* HEMATOCRIT % 32.2* PLATELETS K/cumm 190 CREATININE mg/dL 0.48* GLUCOSE mg/dL 106 Assessment and Plan 29 y.o. PPD#1from . Problem Care Following Vaginal Delivery # ID: Afebrile. No signs/symptoms of infection. #VZV NI: For varivax pp. # Heme: QBL 347 mL. Hemodynamically stable. # CV/Pulm: Elevated BPx2, not meeting criteria for gHTN. One MR BP on arrival but in setting of wrong size cuff, other intrapartum during pushing. Not a candidate for remote blood pressure monitoring. Will CTM pp pressures closely. # GI/: Tolerating PO. Voiding spontaneously. # Pain: Controlled with above regimen. # MOC: Declines s/p counseling. # MOF: . Urine drug screen not indicated. Patient informed of results: N/A. # Post DVT prophylaxis: The patient has the following MAJOR risk factors BMI >/= 40 and the following MINOR risk factors none. enoxaparin 40 mg daily ordered for VTE prophylaxis. # Disposition: Follow up to be scheduled with primary OB. Continue routine care. Service Coverage These phones are service phones and carried 28/01 in house: R1 (first call) [phone] R1 alt (second call) [phone] R4 (Chief) [phone] Anna Means MD 10/15/24 I have reviewed the above documentation and agree with the plan. Continue routien care, likely DC to home tomorrow. Jair Shetty MD PGY4, Department of OBGYN 10/15/24 Cosigned by Lucy Diaz MD at 10/15/2024 10:26 AM CDT Associated attestation - Lucy Diaz MD - 10/15/2024 10:26 AM CDT I have seen and examined the patient on 10/15/24. I agree with the findings and plan of care as documented in resident physician Dr. Means' note. Georgie is a 29 y.o. female s/p vaginal delivery with second degree laceration at 39w1d on 10/15. She is PPD#1 and meeting her milestones. She has been normotensive since delivery and nontachycardic and her fundus is firm below the umbilicus with no LE swelling. She is formula feeding and plans for condoms for contraception. Anticipate plan for discharge home on PPD#2. Lucy Diaz MD 10/14/2024 - 39w1d - Jair Shetty MD Labor Update Note S: Patient s/p epidural and comfortable O: BP 113/58 Pulse 89 Temp 36.9 C (98.5 F) (Oral) Resp 16 Ht 165 cm (5' 4.96) Wt 275 lb 9.2 oz (125 kg) LMP 09/15/2023 SpO2 91% BMI 45.91 kg/m SVE: /-2 Monitoring: Baseline: 125 bpm, Variability: Moderate, Accelerations: Absent and Decelerations: Yes, recurrent variable decelerations Uterine Activity: Contractions present, q2 minutes A/P: 29 y.o. at 39w1d #IOL Category II tracing, reassured by variaiblity Oxytocin again paused given recurrent variable declerations FSE placed Will start amnioinfusion Suspect may be in setting of rapid cervical change and effacement Vitals: single mild range BP on admission w/ wrong size cuff, normotensive otherwise Additional medications/infusions: none Dr. Delacruz at bedside Jair Shetty MD 10/14/2024 - 39w1d - Jair Shetty MD Labor Update Note S: Patient s/p epidural and comfortable O: BP 121/65 Pulse 90 Temp 37 C (98.6 F) (Oral) Resp 18 Ht 165 cm (5' 4.96) Wt 275 lb 9.2 oz (125 kg) LMP 09/15/2023 SpO2 100% BMI 45.91 kg/m SVE: /-3 Monitoring: Baseline: 120 bpm, Variability: Moderate, Accelerations: Present and Decelerations: Yes, recurrent variable and possible late appearing declerations Uterine Activity: Irregular contractions A/P: 29 y.o. at 39w1d #IOL Category II tracing, reassured by variability and presence of accelerations AROM performed at 0340 w/ small clear fluid IUPC placed Will pause pitocin x 30 min and restart pending tolerance Vitals: reviewed and normal Additional medications/infusions: none Dr. Diaz updated Jair Shetty MD Progress Notes - Office Visi t - 10/08/2024 - GA:38w2d 10/08/2024 - 38w2d - Jani Licona MD EOB--38w2d - Patient left before she could be evaluated by a physician - BMI 40+: NST reactive today. Reviewed by Gertrude Reyes DRY CLEANING SUPERVISOR Progress Notes - Office Visi t - 10/01/2024 - GA:37w2d 10/01/2024 - 37w2d - Leah Delacruz MD OB return Doing well, NST was reactive. Good FM. Plan for 39 week IOL. Progress Notes - Office Visi t - 09/24/2024 - GA:36w2d 09/24/2024 - 36w2d - Jani Licona MD EOB--36w2d - Doing well today. No concerns. Still deciding on name for baby. - BMI 40+: Growth US with AGA fetus in vertex presentation. BPP 02/12. Continued UTD A1 with plan for evaluation. Continue weekly NST. - Vaccines: Counseled on updated covid vaccine - GBS collected Exam Chaperoned by: Zahida Aburto - 3T labs ordered - 36 week teaching completed by Devon Quiroga RN - MOD: Desires 39 week IOL. Will work on scheduling. - Labor and WAC return precautions reviewed 09/24/2024 - 36w2d - Devon Reyes RN Met with Gerogie Mercado today for 36 week education. Discussed signs of labor and pp bc. 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 Also informed that social work will visit her in the hospital and baby will have a hearing and blood screening. Pt stated understanding. Progress Notes - Office Visi t - 09/10/2024 - GA:34w2d 09/10/2024 - 34w2d - Sol Ansari MD EOB Visit Patient reports doing well today. She endorses some pelvic/pubic symphysis pain. She denies contractions, vaginal bleeding and leakage of fluid. She endorses good movement. NST reactive and reassuring. Questions answered. WAC precautions reviewed. RTC in 2 weeks. N PICKER Progress Notes - Office Visi t - 08/27/2024 - GA:32w2d 08/27/2024 - 32w2d - Gertrude Reyes NP CARMINA - Denies lof,bleeding and or ctx's - Reports +FM - groath US today efw 2263g (83%)with AC at the upper limit of normal, 90th%, fhr 151, vtx, anterior placenta no previa, matt nml, The left renal pelvis measures 8.1 mm, consistent with UTDA1. - reviewed NST's and growth US @ 36wks RTC in 2 weeks with NST Dorinda Reyes APRN, WHNP-BC N PICKER Progress Notes - Office Visi t - 07/30/2024 - GA:28w2d 07/30/2024 - 28w2d - Shruti Blackmon RN Met with Georgie Mercado today for 28-30 week education. Patient plans to breastfeed and discussed the benefits of . Patient given booklet reviewing the risks of formula feeding and when to appropriately introduce a pacifier. Given booklet reviewing hand expression, hunger cues, positioning, latch, and when the AAP recommends introducing solids. Aware that workers compensation consultant will meet with patient in the hospital. Discussed colostrum, how to order a breast pump, referred to the breast feeding guide and booklet provided. Discussed the baby friendly initiatives i.e. skin to skin, rooming in and delayed bath. Also discussed birthing classes and how to enroll, reviewed online resources and virtual tour currently being offered by [facility]. Having a girl!! N PICKER 07/30/2024 - 28w2d - Gertrude Reyes NP CARMINA - Denies lof,bleeding and or ctx's - Reports +FM - has growth US after visit. - tdap today RTC in 4 weeks Dorinda Reyes APRN, WHNP-BC N PICKER Progress Notes - Office Visi t - 07/02/2024 - GA:24w2d 07/02/2024 - 24w2d - Joelle Crowe Rai, NP CARMINA - Denies lof, vaginal bleeding, and ctx's - Reports +FM - Serial growths starting with next visit: needs to schedule - 2T labs ordered - echo scheduled 07/23 RTC in 4 weeks RAJI Hendricks Department of Obstetrics and Gynecology [facility] [employer] N PICKER Progress Notes - Office Visi t - 06/11/2024 - GA:21w2d 06/11/2024 - w2d - Gertrude Reyes NP CARMINA - Denies lof,bleeding and or cramping - anatomy US today efw 482g (86%), fhr 150, breech, anterior placenta no previa, matt nml, ut/adnexa nml, cl 40.2mm - has echo in place - T+S today RTC in 4 weeks Dorinda Reyes APRN, WHNP-FARBICE N PICKER Progress Notes - Office Visi t - 04/29/2024 - GA:15w1d 04/29/2024 - 15w1d - Joelle Crowe Rai, NP CARMINA - Denies lof, vaginal bleeding, and cramping - She has decided against cell-free DNA testing at this time - Has echo scheduled d/t family history of main heart vessels switched - Reports mild nausea that is well controlled with Zofran. Discussed Luann and/or peppermint as well - C/O mild vaginal pressure. Discussed belly bands and stretches RTC in 4 weeks RAJI Hendricks Department of Obstetrics and Gynecology [facility] [employer] Cosigned by Gertrude Reyes NP at 04/29/2024 12:27 PM CDT Progress Notes - Office Visi t - 04/01/2024 - GA:11w1d 04/01/2024 - 11w - Shruti Blackmon RN Met with Georgie Mercado today for initial/first trimester visit teaching. Discussed the practice reviewed that group is comprised of 1 male physician, 6 female physicians, and 2 female nurse practitioners. Reviewed safe medications, appropriate diet, exercise/activity, travel, animals and vaccinations. Pt had specific questions that were answered appropriately. Considering cfdna, given info, will reach out if desires to schedule. 04/01/2024 - w1d - Lucy Diaz MD [facility] Initial Visit Georgie Mercado is a 28 y.o. female at 11w1d weeks gestation (dated by 7 wk US consistent LMP, Estimated Date of Delivery: 10/20/24 ) who is an established patient presenting for an initial obstetrics visit. She reports nausea and vomiting that is significantly improving, only occasional episodes of vomiting now. She endorses acid reflux and constipation. She was experiencing dizziness with the nausea and vomiting. Denies vaginal bleeding, loss of fluid, contractions, or cramping. 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 Please see appropriate sections for relevant information. Objective: Please see Vitals & Physical Exam in Episode Tab Exam & TVUS Chaperoned by: Natasha Lao Assessment & Plan: Diagnoses and all orders for this visit: Supervision of other normal , antepartum (Primary) Assessment & Plan: - TAUS for viability completed today - labs ordered - Pap smear NILM 08/2020, screening performed today - GC/CT/trichomonas offered and declined - [place] Depression Scale Total: 0 - Reviewed criteria for ASA 81mg: Minor Criteria (2+ required for Dx): Obesity (BMI > 30) and Previous adverse outcome - Flu and Covid vaccination recommendations reviewed, is planning on getting labs through work - Genetic testing options reviewed, recommended NIPT, considering, would like to discuss with - Specialized anatomy US ordered and plan for echo based on family hx - Education on care and expectations also provided by OB RN Krystal Orders: - POCT OB urine short dip (glucose, protein, ketones) - US Ob Detail Anatomy Single Or First Gestation; Future - Type and screen; Future - CBC without differential; Future - HIV 1/2 Antibody plus p24 Antigen Blood; Future - RPR Blood; Future - Hepatitis B Surface Antigen Blood; Future - Hepatitis C antibody Blood; Future - Rubella IgG antibody Blood; Future - Varicella Zoster IgG antibody Blood; Future - Pap with reflex to High Risk HPV and Genotyping (Cytology Component); Future - ThinPrep processing (Molecular component); Future - Thyroid Function [place]; Future - Hemoglobin A1c; Future - US Ob Under 14 Weeks - aspirin 81 mg chewable tablet; Take 1 tablet (81 mg total) by mouth daily Take daily until delivery for prevention of pre-eclampsia - Urine culture Urine, clean voided; Future - Urinalysis reflex to microscopic; Future Morbid obesity with BMI of 45.0-49.9, adult ([facility] ([facility]) Assessment & Plan: Plan for baseline labs with labs Monitor weight gain in the Growth US starting at 28 weeks, NSTs at 34 wks Plan for IOL at 39 wks Orders: - Thyroid Function [place]; Future - Hemoglobin A1c; Future - aspirin 81 mg chewable tablet; Take 1 tablet (81 mg total) by mouth daily Take daily until delivery for prevention of pre-eclampsia Family history of cardiac disorder - Echocardiogram; Future Return to clinic in 4 weeks. Advised to contact office with any questions or concerns or present to [facility] with any emergent issues. Lucy Diaz MD Last Filed Vital Signs Vital Sign Reading Time Taken Comments Blood Pressure 124/71 10/16/2024 7:25 AM CDT Pulse 84 10/16/2024 7:25 AM CDT Temperature 36.9 C (98.4 F) 10/16/2024 7:25 AM CDT Respiratory Rate 18 10/16/2024 7:25 AM CDT Oxygen Saturation 97% 10/16/2024 7:25 AM CDT Inhaled Oxygen Concentration - - Weight 125 kg (275 lb 9.2 oz) 10/14/2024 9:00 AM CDT Height 165 cm (5' 4.96) 10/14/2024 9:00 AM CDT Body Mass Index 45.91 10/14/2024 9:00 AM CDT Plan of Treatment Health Maintenance Due Date Last Done Comments Hepatitis B Screening 2015 Regular Well Visit/Exam 18-64 08/12/2021 08/12/2020 Influenza Vaccine (Season Ended) 2025 04/12/2022, 07/08/2014 Cervical Cancer Screening 04/01/20252023, 08/12/2020 Depression Screening 04/01/2025 04/01/2024 DTaP/Tdap/Td Vaccine (3 - Td or Tdap) 07/30/2034 07/30/2024, 04/12/2022 Hepatitis C Screening Completed 04/03/2024 , 11/18/2021 Varicella Vaccines Completed 10/15/2024, 06/14/2022 HPV Vaccines Aged Out No longer eligi ble based on patient's age to complete this topic Pneumococcal vaccine <65 Aged Out No longer eligible based on patient's age to complete this topic Procedures Procedure Name Priority Date/Time Associated Diagnosis Comments MN AN PROCEDURE PLACEHOLDER Routine 10/14/2024 2:07 PM CDT EGFR STAT 10/14/2024 9:47 AM CDT BASIC METABOLIC PANEL STAT 10/14/2024 9:47 AM CDT CBC WITHOUT DIFFERENTIAL STAT 10/14/2024 9:47 AM CDT TYPE AND SCREEN STAT 10/14/2024 9:47 AM CDT RPR STAT 10/14/2024 9:47 AM CDT NONSTRESS TEST Routine 10/08/2024 9:45 AM CDT Supervision of other normal , antepartum Morbid obesity with BMI of 45.0-49.9, adult ([facility] ([facility]) NONSTRESS TEST Routine 10/01/2024 3:44 PM CDT Morbid obesity with BMI of 45.0-49.9, adult ([facility] ([facility]) Supervision of other normal , antepartum GROUP B STREPTOCOCCUS CULTURE Routine 09/24/2024 2:51 PM CDT Supervision of other normal , antepartum CBC WITHOUT DIFFERENTIAL Routine 09/24/2024 12:36 PM CDT Supervision of other normal , antepartum HIV 1/2 ANTIBODY PLUS P24 ANTIGEN Routine 09/24/2024 12:36 PM CDT Supervision of other normal , antepartum OB FOLLOW UP Schedule Routine, Read Routine (OP Routine) 09/24/2024 10:51 AM CDT Supervision of other normal , antepartum NONSTRESS TEST Routine 09/17/2024 12:08 PM CDT Supervision of other normal , antepartum Morbid obesity with BMI of 45.0-49.9, adult (CMS/HCC) (HCC) History of IUFD HEPATITIS C ANTIBODY Routine 04/03/2024 PAP WITH REFLEX TO HIGH RISK HPV Routine 04/01/2024 1:24 PM CDT Supervision of other normal , antepartum from Last 3 Months or Most Recently Relevant to Health Maintenance Results * MN AN PROCEDURE PLACEHOLDER (10/14/2024 2:07 PM CDT) Narrative Surjit Mcdermott MD - 10/14/2024 2:07 PM CDT Surjit Mcdermott MD 10/14/2024 2:12 PM Epidural Block Patient location: L&D Reason for block: labor analgesia Staff: Supervising provider: Surjit Mcdermott MD Placed by: Resident: Jose De Jesus Spivey MD Procedure prep: Preprocedure checklist: patient identified, procedure contraindications assessed, procedure consent obtained, surgical consent, IV checked, risks, benefits and alternatives discussed, monitors and equipment checked and timeout performed Patient Position: sitting Procedure performed while patient: awake Monitoring: oximetry and blood pressure Prep solution: chlorhexadine/alcohol PPE: sterile gloves, sterile drape and provider hat/mask Skin infiltrated with lidocaine 1%: yes Epidural: Approach: midline Imaging guidance used: no Location: L3-4 Number of attempts:1 Epidural needle: Injection technique: SUZANNE saline Needle type: Tuohy Needle gauge: 17 G Needle length: 9 cm Loss of resistance: 6 cm Catheter: Catheter type: multi-orifice and wire-bound. Catheter at skin depth: 11 cm Negative aspiration of blood: no Negative aspiration of CSF: no Test dose: negative Assessment: Sensory level - left: full eval pending Sensory level - right: full eval pending Events: patient tolerated procedure well with no complications Surjit Mcdermott MD ANESTHESIA ORDERABLES Fi nal Result * eGFR (10/14/2024 9:47 AM CDT) eGFR >90 >=60 mL/min/1. 73 m2 Comment: Interpretive Data Reference Interval Normal >/= 90 mL/min/1.73m2 Mildly decreased* 60 - 89 mL/min/1.73m2 Mildly to moderately decreased 45 - 59 mL/min/1.73m2 Moderately to severely decreased 30 - 44 mL/min/1.73m2 Severely decreased 15 - 29 mL/min/1.73m2 Kidney Failure < 15 mL/min/1.73m2 *Relative to young adult level Estimated glomerular filtration rate is determined by the 2020 CKD-EPI equation recommended by the National Kidney Foundation (A Unifying Approach to GFR Estimation: Recommendations of the NKF-ASK Task Force on Reassessing the Inclusion of Race in Diagnosing Kidney Disease, JASN 2020). The CKD-EPI equation should not be used for patients with unstable renal function and has not been validated in children and those over 70. Current interpretive data was last reviewed 2021. Blood 10/14/2024 9:47 AM CDT 10/14/2024 9:53 AM CDT us Parish Singer [facility] LAB BLOOD ORDERABLES Final Result [facility] Department [place] [address] * RPR Blood (10/14/2024 9:47 AM CDT) Pathologist [facility] RPR Nonreactive Nonreactive Blood 10/14/2024 9:47 AM CDT 10/14/2024 9:53 AM CDT Parish DORANTES LAB MICROBIOLOGY - GENERAL ORDERABLES Final Result MIHAI [facility] Department [place] [address] * (ABNORMAL) CBC without differential (10/14/2024 9:47 AM CDT) Pathologist [facility] WBC 6.88 3.80 - 9.90 K/cumm Hgb 10.6(L) 11.9 - 15.5 g/dL [facility] Hct 32.2(L) 35.6 - 45.5 % [facility] Plt 190 150 - 400 K/cumm [facility] MPV 11.2 9.1 - 12.3 fL [facility] RBC 3.98 3.90 - 5.20 M/cumm [facility] MCV 80.9(L) 81.3 - 96.4 fL [facility] MCH 26.6(L) 27.1 - 33.3 pg [facility] MCHC 32.9 32.3 - 35.7 g/dL [facility] RDW CV 13.8 11.1 - 14.9 % [facility] RDW SD 40.3 35.7 - 48.1 fL [facility] NRBC abs 0.00 0.00 - 0.01 K/cumm [facility] Blood 10/14/2024 9:47 AM CDT 10/14/2024 9:53 AM CDT us Parish Singer [facility] LAB BLOOD ORDERABLES Final Result Performing Organization Address City/[facility] Co de Phone Number [facility] [place] [address] * Type and screen (10/14/2024 9:47 AM CDT) Liam, indirect Negative ABO Rh A Positive [facility] Blood 10/14/2024 9:47 AM CDT 10/14/2024 9:58 AM CDT Narrative [facility] - 10/14/2024 10:42 AM CDT Has the patient had Daratumumab or Isatuximab in the past 6 months?->Unknown us Parish DOR[facility] LAB BLOOD BANK TEST ORDERAB LES Final Result [facility] [place] [address] * (ABNORMAL) Basic metabolic panel (10/14/2024 9:47 AM CDT) Sodium 139 135 - 145 mmol/L Potassium, pl 3.6 3.3 - 4.9 mmol/L [facility] Chloride 106 97 - 110 mmol/L [facility] CO2 21(L) 22 - 32 mmol/L [facility] Anion gap 12 2 - 15 mmol/L [facility] BUN 6 6 - 25 mg/dL [facility] Creatinine 0.48(L) 0.60 - 1.10 mg/dL [facility] Glucose 106 70 - 199 mg/dL [facility] Comment: Interpretive Data Fasting glucose >/= 126 mg/dl is diagnostic for diabetes. Fasting is defined as no caloric intake for at least 8 hours. Fasting glucose between 100 mg/dl to 125 mg/dl is diagnostic of prediabetes. In a patient with classic symptoms of hyperglycemia or hyperglycemic crisis, a random glucose >/= 200 mg/dl is diagnostic for diabetes. In the absence of unequivocal hyperglycemia, results should be confirmed by repeat testing. The classification and Diagnosis of Diabetes Diabetes Care 202; 46: S19-S40. Current interpretive data was last revised 2022. Calcium 9.0 8.5 - 10.3 mg/dL [facility] Blood 10/14/2024 9:47 AM CDT 10/14/2024 9:53 AM CDT us Parish DORANTES LAB BLOOD ORDERABLES Final Result [facility] Department [place] [address] * nonstress test - (10/08/2024 9:45 AM CDT) us Gertrude Reyes NP OB GYNE ORDERABLES F inal Result * nonstress test - (10/01/2024 3:44 PM CDT) us Leah Delacruz MD OB GYNE ORDERA BLES Final Result * Group B streptococcal culture Vaginal/Rectal (09/24/2024 2:51 PM CDT) Pathologist [facility] Report Final Report: Negative Vaginal/Rectal 09/24/2024 2: 51 PM CDT 09/24/2024 2:57 PM CDT Narrative [facility]I [facility] - 09/27/2024 12:57 PM CDT Testing performed by [facility] ([phone]). Jani Licona MD LAB MICROBIOLOGY - GENERA L ORDERABLES Final Result Performing Organization Address [facility] [place] [address] * HIV 1/2 Antibody plus p24 Antigen Blood (09/24/2024 12:36 PM CDT) [facility] HIV 1/2 ab + p24 ag Nonreactive Nonreactive Comment:Nonreactive for HIV- 1 antigen and HIV-1/HIV-2 antibodies. No laboratory evidence of HIV infection. If acute HIV infection is suspected, consider testing for HIV-1 RNA. Current interpretive data was last revised on 22. Blood 09/24/2024 12:3 6 PM CDT 09/24/2024 1:52 PM CDT Jani Licona MD LAB MICROBIOLOGY - GENERA L ORDERABLES Final Result Performing Organization Address City/Surgical [facility] Co de Phone Number [facility] Department [place] [address] * (ABNORMAL) CBC without differential (09/24/2024 12:36 PM CDT) [facility] WBC 7.5 3.8 - 9.9 K/cumm Hgb 11.0(L) 11.9 - 15.5 g/dL [facility] Hct 32.2(L) 35.6 - 45.5 % [facility] Plt 166 150 - 400 K/cumm [facility] MPV 10.5 9.1 - 12.3 fL [facility] RBC 3.88(L) 3.90 - 5.20 M/cumm [facility] MCV 83.0 81.3 - 96.4 fL [facility] MCH 28.4 27.1 - 33.3 pg [facility] MCHC 34.2 32.3 - 35.7 g/dL [facility] RDW CV 13.9 11.1 - 14.9 % [facility] RDW SD 41.5 35.7 - 48.1 fL [facility] NRBC abs 0.00 0.00 - 0.01 K/cumm [facility] Blood 09/24/2024 12:3 6 PM CDT 09/24/2024 1:53 PM CDT us Jani Licona MD LAB BLOOD ORDERABLES Flor sharlene Result [facility] One [facility] Department [place] [address] * US Ob Follow Up (09/24/2024 10:51 AM CDT) Fetus# Fetus1 VIEWPOINT Estimated Weight 3,118 g&grams VIEWPOINT Placenta Details anterior, Previa-no VIEWPOINT Presentation Vertex VIEWPOINT Anatomical Region Laterality Modality Abdomen N/A Ultrasound 09/24/2024 10:5 1 AM CDT Impressions 09/24/2024 11:59 AM CDT IUP at 36w 2d in Vertex presentation. Interval growth is appropriate. The left renal pelvis measures 8.3 mm c/w UTD A1. AFV is wnl 11.8 cm. BPP is 8/8. Narrative Procedure Note Altagracia Mcfarland MD - 09/24/2024 IMPRESSION: IUP at 36w 2d in Vertex presentation. Interval growth is appropriate. The left renal pelvis measures 8.3 mm c/w UTD A1. AFV is wnl 11.8 cm. BPP is 8/8. us Irma Rogers MD IMG OB US PROCEDURES Fi nal Result * nonstress test - (09/17/2024 12:08 PM CDT) us Gertrude Reyes DRY CLEANING SUPERVISOR OB GYNE ORDERABLES F inal Result * Hepatitis C antibody Blood (04/03/2024) SCRIBED HCV ab negative Blood us Lucy Diaz MD LAB MICROBIOLOGY - GEN ERAL ORDERABLES Final Result * Pap with reflex to High Risk HPV and Genotyping (Cytology Component) (04/01/2024 1:24 PM CDT) Thin prep (Pap test) 04/01/2024 1:24 PM CDT 04/01/2024 3:30 PM CDT Narrative PATHOLOGY [facility] - 04/10/2024 3:27 PM CDT EPIC results best viewed via link to PDF [facility] Laboratory of Surgical Pathology [place], [place] [id number] Note to Patients: This report may contain a detailed description of human tissue sent by a health care provider to the laboratory for pathologic evaluation. The content of this report is essential for diagnosis and may provide important critical findings. This information may be unfamiliar to patients to review without a medical professional present. It is advised that the patient review this report in the presence of a health care provider who can answer questions and explain the details. 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 Location: Patient Type: [facility] SPECIMEN Taken: 04/01/2024 Received: 04/01/2024 Accessioned: 04/02/2024 Reported: 04/10/2024 Physician(s): Lucy Diaz MD FINAL INTERPRETATION SOURCE OF SPECIMEN Liquid based Thin Prep pap with Reflex HPV: STATEMENT OF ADEQUACY - Satisfactory for evaluation - Endocervical cells/transformation zone sample present GENERAL CATEGORIZATION: - Negative for squamous intraepithelial lesion or malignancy INTERPRETATION: - Reactive cellular changes associated with inflammation kn/04/10/2024 09:28 By this signature, I attest that the above diagnosis is based upon my personal examination of the slides(and/or other material indicated in the diagnosis). Ben Dasilva DO Report Electronically Reviewed and Signed Out By Ben Dasilva DO 04/10/2024 15:27:53 Jon Parker MS, CT(ASCP)PA Cervicovaginal Cytology (Pap Test) Disclaimer: The Pap test is a screening test used to detect cervical cancer and its precursors; it is not a diagnostic procedure. False negative and false positive results do occur. Pap test results should be interpreted in the context of pertinent clinical information and biopsy results as indicated. [facility] Clinical Laboratory Improvement Amendments (CLIA) mandate that cytologic and histologic results be correlated for laboratory quality internship & improvement standards. FOR ALL HIGH-GRADE CASES we request submission of follow-up histological material and/or reports that have not been previously provided so that we may fulfill said required standards. Gross Description A. Liquid based Thin Prep pap with Reflex HPV: Cervical/vaginal - Screening ThinPrep Clinical Diagnosis and History Last Menstrual Period: 01-14-24 The patient is a 28-year-old woman at 11 weeks and 1 day gestation who presents for initial visit. Previous Pap test result in 2020 was negative for squamous intraepithelial lesion or malignancy ([id number]). Report Images and scanned documents, if included only viewable in PDF version The performance characteristics of some immunohistochemical stains, in-situ hybridization and fluorescence in-situ hybridization tests and immunophenotyping by flow cytometry cited in this report (if any) were determined by the Surgical Pathology Department at [facility] as part of an ongoing software quality tester program and in compliance with federally mandated regulations drawn from the Clinical Laboratory Improvement Act of 1988 (CLIA '88). Some of these tests rely on the use of analyte specific reagents and are subject to specific labeling requirements by the US Food and Drug Administration. Such diagnostic tests may only be performed in a facility that is certified by the Department of Health and Human Services as a high complexity laboratory under CLIA '88. The FDA has determined that such clearance or approval is not necessary. This test is used for clinical purposes. It should not be regarded as investigational or for research. Nevertheless, federal rules concerning the medical use of analyte specific reagents require that the following disclaimer be attached to the report: This test was developed and its performance characteristics determined by the Surgical Pathology Department of [facility]. It has not been cleared or approved by the U. S. Food and Drug Administration. Lucy Diaz MD LAB CYTOLOGY ORDERABLE S Final Result PATHOLOGY [facility] 3rd Floor [place], [place] [phone] from Last 3 Months or Most Recently Relevant to Health Maintenance Insurance [facility] CLAIMS [facility] HMO/PPO Address: [address] [place] [address] [facility] H[facility]/PPO Address: [address] [address] Advance Directives For more information, please contact: [phone] * Full Code (Latest Code Status on File) Date Activated Date Inactivated Comments 10/14/2024 9:01 PM 10/16/2024 10:17 PM * Full Code Date Activated Date Inactivated Comments 10/14/2024 9:30 AM 10/14/2024 9:01 PM Full CPR in ca se of cardiopulmonary arrest * Full Code Date Activated Date Inactivated Comments 06/13/2022 5:46 AM 06/14/2022 4:05 PM * Full Code Date Activated Date Inactivated Comments 06/12/2022 11:17 AM 06/13/2022 5:46 AM Full CPR in case of cardiopulmonary arrest Care Teams Sales Analytics Manager Relationship Specialty Start Date End Date Mark Flores MD [address] [place] [address] PCP - General Family Medicine 10/04/23 Lenny Mckee MD [address] [facility] [address] G[address] [place] [address] General Surgery 03/30/19
--- OUTSIDE RECORDS SUMMARY | 2024-12-17 19:18 | XMS_ITS | Referral Summary ---
Author Organization [facility] Address [address] [place] [address] Care Team Providers Care Hospitality Specialist Name Role Phone Lenny Mckee MD Unavailable [phone] Mark Flores MD Primary Care Provider [phone] Encounters Date Type Department Care Team Description 10/22/2024 Telephone [facility] Obstetrics and Gynecology [address] [facility] 7th Floor [address] [place] [phone] Dharmesh Moreno RN OB concern 10/16/2024 Telephone [facility] Obstetrics and Gynecology [address] [facility]patient [facility] 7th Floor [address] [place] [phone] Kayy Valencia 10/14/2024 8:30 AM CDT - 10/16/2024 6:12 PM CDT Hospital Encounter [address] [phone] Key Louie MD Whelan, MD Nathan Barnes Cory Scott, MD Discharge Disposition: Discharge to home or self care 10/14/2024 2:01 PM CDT Anesthesia Event [address] [phone] Malachi Petersen MD Schappe, Elizabeth Mary, GAVIN 10/12/[address] [phone] Virgie Dunn, ALICIA Outgoing Call 10/08/2024 10:00 AM CDT Clinical Support [facility] Obstetrics and Gynecology [address] [place] [address] 10/08/2024 9:00 AM CDT Clinical Support [facility] Obstetrics and Gynecology [address] [place] [phone] Supervision of other normal , antepartum (Primary Dx); Morbid obesity with BMI of 45.0-49.9, adult (CMS/HCC) (HCC) 10/08/2024 9:45 AM CDT Office Visit [facility] Obstetrics and Gynecology [address] [place] [address] Floor [address] [place] [phone] Supervision of other normal , antepartum (Primary Dx); 38 weeks gestation of 10/01/2024 3:00 PM CDT Clinical Support [facility] Obstetrics and Gynecology [address] [place] [phone] Morbid obesity with BMI of 45.0-49.9, adult (CMS/HCC) (HCC) (Primary Dx); Supervision of other normal , antepartum 10/01/2024 3:30 PM CDT Office Visit [facility] Obstetrics and Gynecology [address] [place] [address] Floor [address] [place] [phone] Supervision of other normal , antepartum (Primary Dx) 09/27/2024 Results Follow-Up [address] [phone] Jani Licona MD Group B streptococcal culture Vaginal/Rectal 09/24/2024 Results Follow-Up [address] [phone] Jani Licona MD HIV 1/2 Antibody plus p24 Antigen Blood, CBC without differential 09/24/2024 1:56 PM CDT - 09/24/2024 11:59 PM CDT Hospital Encounter [address] [place] [address] Supervision of other normal , antepartum Discharge Disposition: Discharge to home or self care 09/24/2024 12:35 PM CDT Lab [facility] [address] [place] [address] Supervision of other normal , antepartum 09/24/2024 10:51 AM CDT - 09/24/2024 11:59 PM CDT Hospital Encounter [facility] Outpatient Health - Ultrasound [address] [facility], 7th Floor, [address] [place] [address] Supervision of other normal , antepartum Discharge Disposition: Discharge to home or self care 09/24/2024 11:45 AM CDT Office Visit [facility] Obstetrics and Gynecology [address] [place] [address] 7th Floor [address] [place] [phone] Supervision of other normal , antepartum (Primary Dx); Other obesity affecting in third trimester; 36 weeks gestation of 09/17/2024 9:30 AM CDT Clinical Support [facility] Obstetrics and Gynecology [address] [place] [address] 7th [place] [phone] History of IUFD (Primary Dx); Supervision of other normal , antepartum; Morbid obesity with BMI of 45.0-49.9, adult ([facility]) ([facility]) from Last 3 Months Allergies Active Allergy Reactions Criticality Noted Date Comments Adhesive Rash Medium 10/14/2024 Medications [id number] c acid 29 mg iron- 1 mg [...] carried 28/01 in house: R1 (first call) [phone] R1 alt (second call) [phone] R4 (Chief) [phone] Supervision of other normal , antepartu m [...] today - GC/CT/trichomonas offered and declined - [place] Depression Scale Total: 0 - Reviewed criteria [...] Morbid obesity with BMI of 45.0-49.9, adult ([facility]) 08/12/2020 Overview (07/15/2023): - BMI 45 at [...] Tdap (27-36wks): MJ 04/12/22 [x] Flu Shot: MJ 04/12/22 [x] COVID vaccine: complete per report, [...] dot phrase ACOGEXERCISEAFTERPREGNANCY) Irregular periods 08/12/2020 08/03/2021 Immunizations Immunization Administration Dates Next Due Influenza, Quadrivalent, Blaire l Culture-based MDCK, Preservative Free, Antibiotic Free, Intramuscular 04/12/2022 Influenza, Trivalent, High D ose, Split, Preservative Free, Intramuscular 07/08/2014 MMR 06/14/2022 Tdap 07/30/2024,04/12/2022 Varicella 10/15/2024,06/14/2022 Social History Tobacco Use Types Packs/Day Years Used Date Smoking Tobacco: Never Smokeless Tobacco: Never Tobacco Cessation:Counseling Given: Not Answered Alcohol Use Standard Drinks/Week Comments Yes 0 (1 standard drink = 0.6 oz pur e alcohol) social [employer] Utilities Answer Date Recorded In the past 12 months has th e [employer], gas, oil, or water dotSyntax threatened to shut off services in your [...] week 10/15/2024 How often do you attend [facility] or protestant services? Never 10/15/2024 Do you belong to any clubs o r organizations such as cheondoism groups, unions, fraternal or athletic groups, or [...] place to sleep or slept in a mcfp (including now)? No 06/13/2022 [place] Depression Scale Answer Date Recorded [place] Depression Scale Total 0 04/01/2024 The thought [...] any time in the past [address] [facility], were you homeless or living in a mcfp (including now)? No 10/15/2024 Personal Safety Answer Date Recorded Have you ever been in or are you currently in a harmful physical or emotional relationship or is someone making you feel afraid or unsafe? 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 Not on file Not on file Not on file Last Filed Vital Signs Vital Sign Reading [...] 10/14/2024 9:00 AM CDT Plan of Treatment Not on file Procedures Procedure Name Priority Date/Time Associated Diagnosis Comments MT AN PROCEDURE PLACEHOLDER Routine 10/14/2024 2:07 PM [...] Morbid obesity with BMI of 45.0-49.9, adult ([facility]) ([facility]) NONSTRESS TEST Routine 10/01/2024 3:44 PM CDT Morbid obesity with BMI of 45.0-49.9, adult ([facility]) ([facility]) Supervision of other normal , antepartum GROUP [...] Recently Relevant to Health Maintenance Results * MT AN PROCEDURE PLACEHOLDER (10/14/2024 2:07 PM CDT) [...] 10/14/2024 9:53 AM CDT us Parish Singer [facility] LAB BLOOD ORDERABLES Final Result Performing Organization Address [facility] de Phone Number [facility] Department [place] [address] * RPR Blood (10/14/2024 9:47 AM CDT) RPR Nonreactive Nonreactive Blood 10/14/2024 9:47 AM CDT 10/14/2024 9:53 AM CDT Parish Singer [facility] LAB MICROBIOLOGY - GENERAL ORDERABLES Final Result Performing Organization Address [facility] Co de Phone Number [facility] Department [place] [address] * (ABNORMAL) CBC without differential (10/14/2024 9:47 AM CDT) WBC 6.88 3.80 - 9.90 K/cumm Hgb 10.6(L) 11.9 - 15.5 g/dL [facility] Hct 32.2(L) 35.6 - 45.5 % [facility] Plt 190 150 - 400 K/cumm [facility] MPV 11.2 9.1 - 12.3 fL [facility] RBC 3.98 3.90 - 5.20 M/cumm [facility] MCV 80.9(L) 81.3 - 96.4 fL [facility] MCH 26.6(L) 27.1 - 33.3 pg [facility] MCHC 32.9 32.3 - 35.7 g/dL [facility] RDW CV 13.8 11.1 - 14.9 % [facility] RDW SD 40.3 35.7 - 48.1 fL [facility] NRBC abs 0.00 0.00 - 0.01 K/cumm [facility] Blood 10/14/2024 9:47 AM CDT 10/14/2024 9:53 AM CDT us Parish Singer [facility] LAB BLOOD ORDERABLES Final Result Performing Organization Address City/[facility] de Phone Number [facility] Department [place] [address] * Type and screen (10/14/2024 9:47 AM CDT) Pathologist [facility] Liam, indirect Negative ABO Rh A Positive [facility] Blood 10/14/2024 9:47 AM CDT 10/14/2024 9:58 AM CDT Narrative [facility] - 10/14/2024 10:42 AM CDT Has the patient had Daratumumab or Isatuximab in the past 6 months?->Unknown us Parish DORANTES LAB BLOOD BANK TEST ORDERAB LES Final Result Performing Organization Address [facility]/ZIP Co de Phone Number [facility] [place] [address] * (ABNORMAL) Basic metabolic panel (10/14/2024 9:47 AM CDT) Sodium 139 135 - 145 mmol/L Potassium, pl 3.6 3.3 - 4.9 mmol/L [facility] Chloride 106 97 - 110 mmol/L [facility] CO2 21(L) 22 - 32 mmol/L [facility] Anion gap 12 2 - 15 mmol/L [facility] BUN 6 6 - 25 mg/dL [facility] Creatinine 0.48(L) 0.60 - 1.10 mg/dL [facility] Glucose 106 70 - 199 mg/dL [facility] Comment: Interpretive Data Fasting glucose >/= [...] 2022. Calcium 9.0 8.5 - 10.3 mg/dL [facility] Blood 10/14/2024 9:47 AM CDT 10/14/2024 9:53 AM CDT us Parish Singer [facility] LAB BLOOD ORDERABLES Final Result [facility] [place] [address] * nonstress test - (10/08/2024 9:45 AM CDT) us Gertrude Reyes AIR TRAFFIC CONTROLLER CENTER OB GYNE ORDERABLES F inal Result * nonstress test - (10/01/2024 3:44 PM CDT) us Leah Delacruz MD OB GYNE [place] BLES Final Result * Group B streptococcal culture Vaginal/Rectal (09/24/2024 2:51 PM CDT) Pathologist [facility] Report Final Report: Negative Vaginal/Rectal 09/24/2024 2: 51 PM CDT 09/24/2024 2:57 PM CDT Narrative [facility] - 09/27/2024 12:57 PM CDT Testing performed by [facility] Microbiology Laboratory ([phone]). Jani Licona MD LAB MICROBIOLOGY - GENERA L ORDERABLES Final Result Performing Organization Address City/[facility]/ZIP Co de Phone Number [facility] Department [place] [address] * HIV 1/2 Antibody plus p24 Antigen Blood (09/24/2024 12:36 PM CDT) [facility] HIV 1/2 ab + p24 ag Nonreactive [...] L ORDERABLES Final Result Performing Organization Address City/[facility]/ZIP Co de Phone Number [facility] Department [place] [address] * (ABNORMAL) CBC without differential (09/24/2024 12:36 PM CDT) [facility] WBC 7.5 3.8 - 9.9 K/cumm Hgb 11.0(L) 11.9 - 15.5 g/dL [facility] Hct 32.2(L) 35.6 - 45.5 % [facility] Plt 166 150 - 400 K/cumm [facility] MPV 10.5 9.1 - 12.3 fL [facility] RBC 3.88(L) 3.90 - 5.20 M/cumm [facility] MCV 83.0 81.3 - 96.4 fL [facility] MCH 28.4 27.1 - 33.3 pg [facility] MCHC 34.2 32.3 - 35.7 g/dL [facility] RDW CV 13.9 11.1 - 14.9 % [facility] RDW SD 41.5 35.7 - 48.1 fL [facility] NRBC abs 0.00 0.00 - 0.01 K/cumm [facility] Blood 09/24/2024 12:3 6 PM CDT 09/24/2024 1:53 PM CDT Jani Licona MD LAB BLOOD ORDERABLES Flor su Result [facility] [place] [address] * US Ob Follow Up (09/24/2024 10:51 [...] test - (09/17/2024 12:08 PM CDT) us Gertrudekiki Smith Amy [employer] OB GYNE ORDERABLES F inal Result * Hepatitis C antibody Blood (04/03/2024) SCRIBED HCV ab negative Blood us Lucy Diaz MD LAB MICROBIOLOGY - GEN ERAL ORDERABLES Final Result * Pap with reflex to High Risk HPV and Genotyping (Cytology Component) (04/01/2024 1:24 PM CDT) Thin prep (Pap test) 04/01/2024 1:24 PM CDT 04/01/2024 3:30 PM CDT Narrative PATHOLOGY [facility] - 04/10/2024 3:27 PM CDT EPIC results best viewed via link to PDF [facility] Lynn Portillo Laboratory [place] [address] Note to Patients: This report may contain [...] Gender: F : 1995 (Age: 28) Address: [address] [place] [phone] Hospital #: [id number] Service: REAL ESTATE SUBAGENT Location: Patient Type: [facility] SPECIMEN Taken: 04/01/2024 Received: 04/01/2024 Accessioned: 04/02/2024 Reported: 04/10/2024 Physician(s): Lucy Diaz MD FINAL INTERPRETATION SOURCE OF SPECIMEN Liquid based Thin Prep pap with Reflex HPV: STATEMENT OF ADEQUACY - Satisfactory for evaluation - Endocervical cells/transformation zone sample present GENERAL CATEGORIZATION: - Negative for squamous intraepithelial lesion or malignancy INTERPRETATION: - Reactive cellular changes associated with inflammation kng/04/10/2024 09:28 By this signature, I attest that [...] clinical information and biopsy results as indicated. [facility] Clinical Laboratory Improvement Amendments (CLIA) mandate that cytologic and histologic results be correlated for laboratory quality assurance qa lab analyst & improvement standards. FOR ALL HIGH-GRADE CASES [...] determined by the Surgical Pathology Department at [facility] as part of an ongoing quality control head program and in compliance with federally mandated [...] determined by the Surgical Pathology Department of [facility]. It has not been cleared or approved by the U. S. Food and Drug Administration. Lucy Diaz MD LAB CYTOLOGY ORDERABLE S Final Result [facility] 3rd Floor [place], [place] [phone] from Last 3 Months or Most Recently Relevant to Health Maintenance Insurance [facility] CLAIMS [facility] Advance Directives For more information, please contact: [phone] * Full Code (Latest Code Status on [...] in case of cardiopulmonary arrest Care Teams Hospitality Specialist Relationship Specialty Start Date End Date Mark Flores MD [address] [place] [id number] PCP - General Family Medicine 10/04/23 Lenny Mckee MD [address] [place] [address] [address] [place] [address] General Surgery 03/30/19
[2024-12-17 19:22] VITALS: BP 134/82; PULSE 76; RESP 18; TEMP 37; O2SAT 99
--- OUTSIDE RECORDS SUMMARY | 2024-12-17 19:48 | XMS_ITS | Clinical Summary ---
Author Organization [facility] Address [facility] [place] [address] Care Team Providers Care Golf Course Manager Name Role Phone Lenny Mckee MD Unavailable [phone] Mark Flores MD Primary Care Provider [phone] Allergies Active Allergy Reactions Criticality Noted Date Comments Adhesive Rash Medium 10/14/2024 Medications [id number] c acid 29 mg iron- 1 mg [...] carried 28/01 in house: R1 (first call) [phone] R1 alt (second call) [phone] R4 (Chief) [phone] Supervision of other normal , antepartu m [...] today - GC/CT/trichomonas offered and declined - Hollywood Depression Scale Total: 0 - Reviewed criteria [...] Morbid obesity with BMI of 45.0-49.9, adult ([facility]) 08/12/2020 Overview (07/15/2023): - BMI 45 at [...] Type Department Care Team Description 10/22/2024 Telephone [facility] Obstetrics and Gynecology [address] [facility] 7th Floor [address] [place] [address] Dharmesh Moreno, ALICIA OB concern 10/16/2024 Telephone [facility] Obstetrics and Gynecology [address] [facility] 7th Floor [address] [place] [address] Kayy Valencia 10/14/2024 2:01 PM CDT Anesthesia Event [address] [address] Malachi Petersen MD Schappe, Elizabedanie Urban, GAVIN 10/14/2024 8:30 AM CDT - 10/16/2024 6:12 PM CDT Hospital Encounter [address] [address] Key Louie MD Whelan, MD Nathan Barnes, Santana Munoz MD Discharge Disposition: Discharge to home or self care 10/12/[address] [phone] Virgie Dunn RN Outgoing Call 10/08/2024 10:00 AM CDT Clinical Support [facility] Obstetrics and Gynecology [address] [place] [address] 10/08/2024 9:45 AM CDT Office Visit [facility] Obstetrics and Gynecology [address] [place] [phone] Supervision of other normal , antepartum (Primary Dx); 38 weeks gestation of 10/08/2024 9:00 AM CDT Clinical Support [facility] Obstetrics and Gynecology [address] [place] [phone] Supervision of other normal , antepartum (Primary Dx); Morbid obesity with BMI of 45.0-49.9, adult (CMS/HCC) (HCC) 10/01/2024 3:30 PM CDT Office Visit [facility] Obstetrics and Gynecology [address] [place] [phone] Supervision of other normal , antepartum (Primary Dx) 10/01/2024 3:00 PM CDT Clinical Support [facility] Obstetrics and Gynecology [address] [place] [phone] Morbid obesity with BMI of 45.0-49.9, adult (CMS/HCC) (HCC) (Primary Dx); Supervision of other normal , antepartum 09/27/2024 Results Follow-Up [address] [place] [address] Jani Licona MD Group B streptococcal culture Vaginal/Rectal 09/24/2024 1:56 PM CDT - 09/24/2024 11:59 PM CDT Hospital Encounter [facility] [address] [place] [address] Supervision of other normal , antepartum Discharge Disposition: Discharge to home or self care 09/24/2024 12:35 PM CDT Lab [facility]patient [facility] [address] [place] [address] Supervision of other normal , antepartum 09/24/2024 11:45 AM CDT Office Visit [facility] Obstetrics and Gynecology [address] [place] [address] Health 7th Floor [address] [place] [phone] Supervision of other normal , antepartum (Primary Dx); Other obesity affecting in third trimester; 36 weeks gestation of 09/24/2024 10:51 AM CDT - 09/24/2024 11:59 PM CDT Hospital Encounter [facility] [address] [place] [address], 7th Floor, [address] [place] [address] Supervision of other normal , antepartum Discharge Disposition: Discharge to home or self care 09/24/2024 Results Follow-Up [facility] [address] [place] [address] Jani Licona MD HIV 1/2 Antibody plus p24 Antigen Blood, CBC without differential 09/17/2024 9:30 AM CDT Clinical Support [facility] Obstetrics and Gynecology [address] [place] [address] 7th [place] [address] History of IUFD (Primary Dx); Supervision of other normal , antepartum; Morbid obesity with BMI of 45.0-49.9, adult (CMS/HCC) ([facility]) from Last 3 Months Immunizations Immunization Administration [...] delivery of IUFD CHOLECYSTECTOMY 07/08/2017 - 07/07/2018 [facility] Medical History Medical History Date Comments Palpitation [...] = 0.6 oz pur e alcohol) social [employer] Utilities Answer Date Recorded In the past 12 months has [employer], gas, oil, or water [employer] threatened to shut off services in your [...] week 10/15/2024 How often do you attend [facility] or rastafari services? Never 10/15/2024 Do you belong to any clubs o r organizations such as mormon groups, unions, fraternal or athletic groups, or [...] place to sleep or slept in a nursing home (including now)? No 06/13/2022 Hollywood Depression Scale Answer Date Recorded Hollywood Depression Scale Total 0 04/01/2024 The thought [...] any time in the past 12 m [facility], were you homeless or living in a nursing home (including now)? No 10/15/2024 Personal Safety Answer Date Recorded Have you ever been in or are you currently in a harmful physical or emotional relationship or is someone making you feel afraid or unsafe? 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 complicated by history of 22 week IUFD, RNI, VNI, BMI 46. 2nd degree lacs 2525-PN-VIEL baby girl Ela ebl 300 2nd degree [...] ABORH A Positive 10/14/2024 IDCOOMB Negative 10/14/2024 [id number] Nonreactive 09/24/2024 [id number] NON-REACTIVE 11/18/2021 [id number] Nonreactive 04/03/2024 LABRPR Nonreactive 10/14/2024 SCRRPR Non-Reactive [...] carbonate sodium chloride 0.9% diphenhydrAMINE hydrocortisone ibuprofen nxgcpkv-qzsrr-mtmqqud nalbuphine naloxone ondansetron ODT OR ondansetron sodium [...] carried 28/01 in house: R1 (first call) [phone] R1 alt (second call) [phone] R4 (Chief) [phone] ASAEL Pruitt 10/16/24 Cosigned by Lucy Diaz MD at 10/16/2024 11:41 AM CDT Associated attestation - Lucy Diaz MD - 10/16/2024 11:41 AM CDT I have seen and examined the patient on 10/16/24. I agree with the findings and plan of care as documented in IT TECHNICAL ARCHITECT Rocío Banda' note. Georgie is a 29 [...] Date/Time: 10/14/2024t 6:50 PM Delivery method: Vaginal [[id number]] 29 y.o. PPD#1 from . Subjective Flatus: [...] carbonate sodium chloride 0.9% diphenhydrAMINE hydrocortisone ibuprofen grnzzft-fuqyw-dinhxau nalbuphine naloxone ondansetron ODT OR ondansetron sodium [...] carried 28/01 in house: R1 (first call) [phone] R1 alt (second call) [phone] R4 (Chief) [phone] Anna Means MD 10/15/24 I have reviewed [...] NST reactive today. Reviewed by Gertrude Reyes IT TECHNICAL ARCHITECT Progress Notes - Office Visi t - [...] 36w2d - Devon Reyes RN Met with Georgie Mercado today for 36 week education. Discussed signs of labor and pp bc. 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 Also informed that [...] WAC precautions reviewed. RTC in 2 weeks. WIRER Progress Notes - Office Visi t - [...] weeks with NST Dorinda Reyes APRN, WHNP-BC WIRER Progress Notes - Office Visi t - [...] the AAP recommends introducing solids. Aware that residential solar sales consultant will meet with patient in the hospital. Discussed colostrum, how to order a breast pump, referred to the breast feeding guide and booklet provided. Discussed the baby friendly initiatives i.e. skin to skin, rooming in and delayed bath. Also discussed birthing classes and how to enroll, reviewed online resources and virtual tour currently being offered by [facility]. Having a girl!! WIRER 07/30/2024 - 28w2d - Gertrude Reyes NP CARMINA - Denies lof,bleeding and or ctx's - Reports +FM - has growth US after visit. - tdap today RTC in 4 weeks Dorinda Reyes APRN, WHNP-BC WIRER Progress Notes - Office Visi t - 07/02/2024 - GA:24w2d 07/02/2024 - 24w2d - Joelle Crowe Rai, NP CARMINA - Denies lof, vaginal bleeding, and ctx's - Reports +FM - Serial growths starting with next visit: needs to schedule - 2T labs ordered - echo scheduled 07/23 RTC in 4 weeks RAJI Hendricks Department of Obstetrics and Gynecology [facility] WIRER Progress Notes - Office Visi t - 06/11/2024 - GA:21w2d 06/11/2024 - w2d - Gertrude Reyes NP CARMINA - Denies lof,bleeding and or cramping - anatomy US today efw 482g (86%), fhr 150, breech, anterior placenta no previa, matt nml, ut/adnexa nml, cl 40.2mm - has echo in place - T+S today RTC in 4 weeks Dorinda Reyes APRN, WHNP-FABRICE WIRER Progress Notes - Office Visi t - [...] RAJI Hendricks Department of Obstetrics and Gynecology [facility] Cosigned by Gertrude eRyes NP at 04/29/2024 12:27 PM CDT Progress [...] 04/01/2024 - w1d - Lucy Diaz MD [facility] Initial Visit Georgie Mercado is a 28 [...] I have reviewed and updated: OB history, HUMAN SERVICES CARE SPECIALIST history, problem list, past medical history, past [...] today - GC/CT/trichomonas offered and declined - Hollywood Depression Scale Total: 0 - Reviewed criteria [...] processing (Molecular component); Future - Thyroid Function Hardeman; Future - Hemoglobin A1c; Future - US Ob Under 14 Weeks - aspirin 81 mg chewable tablet; Take 1 tablet (81 mg total) by mouth daily Take daily until delivery for prevention of pre-eclampsia - Urine culture Urine, clean voided; Future - Urinalysis reflex to microscopic; Future Morbid obesity with BMI of 45.0-49.9, adult ([facility]) ([facility]) Assessment & Plan: Plan for baseline labs with labs Monitor weight gain in the Growth US starting at 28 weeks, NSTs at 34 wks Plan for IOL at 39 wks Orders: - Thyroid Function Hardeman; Future - Hemoglobin A1c; Future - aspirin 81 mg chewable tablet; Take 1 tablet (81 mg total) by mouth daily Take daily until delivery for prevention of pre-eclampsia Family history of cardiac disorder - Echocardiogram; Future Return to clinic in 4 weeks. Advised to contact office with any questions or concerns or present to [facility] with any emergent issues. Lucy Diaz [...] Procedure Name Priority Date/Time Associated Diagnosis Comments NM AN PROCEDURE PLACEHOLDER Routine 10/14/2024 2:07 PM [...] Morbid obesity with BMI of 45.0-49.9, adult ([facility]) ([facility]) NONSTRESS TEST Routine 10/01/2024 3:44 PM CDT Morbid obesity with BMI of 45.0-49.9, adult ([facility]) ([facility]) Supervision of other normal , antepartum GROUP [...] Recently Relevant to Health Maintenance Results * NM AN PROCEDURE PLACEHOLDER (10/14/2024 2:07 PM CDT) [...] 10/14/2024 9:53 AM CDT us Parish Singer [facility] LAB BLOOD ORDERABLES Final Result [facility] Department [place] [address] * RPR Blood (10/14/2024 9:47 AM CDT) Pathologist [facility] RPR Nonreactive Nonreactive Blood 10/14/2024 9:47 AM CDT 10/14/2024 9:53 AM CDT Parish DORANTES LAB MICROBIOLOGY - GENERAL ORDERABLES Final Result [facility] Department [place] [address] * (ABNORMAL) CBC without differential (10/14/2024 9:47 AM CDT) Pathologist [facility] WBC 6.88 3.80 - 9.90 K/cumm Hgb 10.6(L) 11.9 - 15.5 g/dL [facility] Hct 32.2(L) 35.6 - 45.5 % [facility] Plt 190 150 - 400 K/cumm [facility] MPV 11.2 9.1 - 12.3 fL [facility] RBC 3.98 3.90 - 5.20 M/cumm [facility] MCV 80.9(L) 81.3 - 96.4 fL [facility] MCH 26.6(L) 27.1 - 33.3 pg [facility] MCHC 32.9 32.3 - 35.7 g/dL [facility] RDW CV 13.8 11.1 - 14.9 % [facility] RDW SD 40.3 35.7 - 48.1 fL [facility] NRBC abs 0.00 0.00 - 0.01 K/cumm [facility] Blood 10/14/2024 9:47 AM CDT 10/14/2024 9:53 AM CDT us Parish Singer [facility] LAB BLOOD ORDERABLES Final Result Performing Organization Address City/[facility] Co de Phone Number [facility] [place] [address] * Type and screen (10/14/2024 9:47 AM CDT) Liam, indirect Negative ABO Rh A Positive [facility] Blood 10/14/2024 9:47 AM CDT 10/14/2024 9:58 AM CDT Narrative [facility] - 10/14/2024 10:42 AM CDT Has the patient had Daratumumab or Isatuximab in the past 6 months?->Unknown us Parish [facility] LAB BLOOD BANK TEST ORDERAB LES Final Result [facility] [place] [address] * (ABNORMAL) Basic metabolic panel (10/14/2024 9:47 AM CDT) Sodium 139 135 - 145 mmol/L Potassium, pl 3.6 3.3 - 4.9 mmol/L [facility] Chloride 106 97 - 110 mmol/L [facility] CO2 21(L) 22 - 32 mmol/L [facility] Anion gap 12 2 - 15 mmol/L [facility] BUN 6 6 - 25 mg/dL [facility] Creatinine 0.48(L) 0.60 - 1.10 mg/dL [facility] Glucose 106 70 - 199 mg/dL [facility] Comment: Interpretive Data Fasting glucose >/= 126 [...] 2022. Calcium 9.0 8.5 - 10.3 mg/dL [facility] Blood 10/14/2024 9:47 AM CDT 10/14/2024 9:53 AM CDT us Parish [facility] LAB BLOOD ORDERABLES Final Result [facility] Department [place] [address] * nonstress test - (10/08/2024 9:45 AM [...] CDT 09/24/2024 2:57 PM CDT Narrative [facility] - 09/27/2024 12:57 PM CDT Testing performed by [facility] Microbiology Laboratory ([phone]). Jani Licona MD LAB MICROBIOLOGY - GENERA L ORDERABLES Final Result Performing Organization Address [facility] [place] [address] * HIV 1/2 Antibody plus p24 Antigen Blood (09/24/2024 12:36 PM CDT) [facility] HIV 1/2 ab + p24 ag Nonreactive [...] L ORDERABLES Final Result Performing Organization Address City/[facility] Co de Phone Number [facility] Department [place] [address] * (ABNORMAL) CBC without differential (09/24/2024 12:36 PM CDT) [facility] WBC 7.5 3.8 - 9.9 K/cumm Hgb 11.0(L) 11.9 - 15.5 g/dL [facility] Hct 32.2(L) 35.6 - 45.5 % [facility] Plt 166 150 - 400 K/cumm [facility] MPV 10.5 9.1 - 12.3 fL [facility] RBC 3.88(L) 3.90 - 5.20 M/cumm [facility] MCV 83.0 81.3 - 96.4 fL [facility] MCH 28.4 27.1 - 33.3 pg [facility] MCHC 34.2 32.3 - 35.7 g/dL [facility] RDW CV 13.9 11.1 - 14.9 % [facility] RDW SD 41.5 35.7 - 48.1 fL [facility] NRBC abs 0.00 0.00 - 0.01 K/cumm [facility] Blood 09/24/2024 12:3 6 PM CDT 09/24/2024 1:53 PM CDT us Jani Licona MD LAB BLOOD ORDERABLES Flor sharlene Result [facility] [place] [address] * US Ob Follow Up (09/24/2024 10:51 [...] (09/17/2024 12:08 PM CDT) us Gertrude Reyes IT TECHNICAL ARCHITECT OB GYNE ORDERABLES F inal Result * Hepatitis C antibody Blood (04/03/2024) SCRIBED HCV ab negative Blood us Lucy Diaz MD LAB MICROBIOLOGY - GEN ERAL ORDERABLES Final Result * Pap with reflex to High Risk HPV and Genotyping (Cytology Component) (04/01/2024 1:24 PM CDT) Thin prep (Pap test) 04/01/2024 1:24 PM CDT 04/01/2024 3:30 PM CDT Narrative PATHOLOGY [facility] - 04/10/2024 3:27 PM CDT EPIC results best viewed via link to PDF [facility] Laboratory of Surgical Pathology [place], [place] [id number] Note to Patients: This report may contain [...] Gender: F : 1995 (Age: 28) Address: [address] [phone] Hospital #: [id number] Service: HUMAN SERVICES CARE SPECIALIST Location: Patient Type: [facility] SPECIMEN Taken: 04/01/2024 Received: 04/01/2024 Accessioned: 04/02/2024 [...] By Ben Dasilva DO 04/10/2024 15:27:53 Jon aPrker MS, CT(ASCP)PA Cervicovaginal Cytology (Pap Test) Disclaimer: The Pap test is a screening test used to detect cervical cancer and its precursors; it is not a diagnostic procedure. False negative and false positive results do occur. Pap test results should be interpreted in the context of pertinent clinical information and biopsy results as indicated. [facility] Clinical Laboratory Improvement Amendments (CLIA) mandate that cytologic and histologic results be correlated for laboratory quality control inspector & improvement standards. FOR ALL HIGH-GRADE CASES [...] determined by the Surgical Pathology Department at [facility] as part of an ongoing quality systems engineer program and in compliance with federally mandated [...] determined by the Surgical Pathology Department of [facility]. It has not been cleared or approved by the U. S. Food and Drug Administration. Lucy Diaz MD LAB CYTOLOGY ORDERABLE S Final Result PATHOLOGY [facility] 3rd Floor [place], [place] [phone] from Last 3 Months or Most Recently Relevant to Health Maintenance Insurance [facility] H[facility]/PPO Address: [address] [place] [phone] [facility] H[facility]/PPO Address: [address] [address] Advance Directives For more information, please contact: [phone] * Full Code (Latest Code Status on [...] in case of cardiopulmonary arrest Care Teams Golf Course Manager Relationship Specialty Start Date End Date Mark Flores MD [address] [place] [id number] PCP - General Family Medicine 10/04/23 Lenny Mckee MD [address] [facility] [address] [place] [address] General Surgery 03/30/19
--- OUTSIDE RECORDS SUMMARY | 2024-12-17 19:48 | XMS_ITS | Referral Summary ---
Author Organization [facility] Address [address] [place] [address] Care Team Providers Care Mainspring Former Name Role Phone Lenny Mckee MD Unavailable [phone] Mark Flores MD Primary Care Provider [phone] Encounters Date Type Department Care Team Description 10/22/2024 Telephone [facility] Obstetrics and Gynecology [address] [facility] 7th Floor [address] [place] [phone] Dharmesh Moreno RN OB concern 10/16/2024 Telephone [facility] Obstetrics and Gynecology [address] [facility] Outpatient [facility] 7th Floor [address] [place] [phone] Kayy Valencia 10/14/2024 8:30 AM CDT - 10/16/2024 6:12 PM CDT Hospital Encounter [address] [phone] Key Louie MD Whelan, MD Nathan Barnes Cory Scott, MD Discharge Disposition: Discharge to home or self care 10/14/2024 2:01 PM CDT Anesthesia Event [address] [phone] Malachi Petersen MD Schappe, Elizabeth Mary, GAVIN 10/12/[address] [phone] Virgie Dunn, ALICIA Outgoing Call 10/08/2024 10:00 AM CDT Clinical Support [facility] Obstetrics and Gynecology [address] [place] [phone] 10/08/2024 9:00 AM CDT Clinical Support [facility] Obstetrics and Gynecology [address] [place] [phone] Supervision of other normal , antepartum (Primary Dx); Morbid obesity with BMI of 45.0-49.9, adult (CMS/HCC) (HCC) 10/08/2024 9:45 AM CDT Office Visit [facility] Obstetrics and Gynecology [address] [place] [address] Floor [address] [place] [phone] Supervision of other normal , antepartum (Primary Dx); 38 weeks gestation of 10/01/2024 3:00 PM CDT Clinical Support [facility] Obstetrics and Gynecology [address] [place] [phone] Morbid obesity with BMI of 45.0-49.9, adult (CMS/HCC) (HCC) (Primary Dx); Supervision of other normal , antepartum 10/01/2024 3:30 PM CDT Office Visit [facility] Obstetrics and Gynecology [address] [place] [address] [address] [place] [phone] Supervision of other normal , antepartum (Primary Dx) 09/27/2024 Results Follow-Up [address] [phone] Jani Licona MD Group B streptococcal culture Vaginal/Rectal 09/24/2024 Results Follow-Up [address] [phone] Jani Licona MD HIV 1/2 Antibody plus p24 Antigen Blood, CBC without differential 09/24/2024 1:56 PM CDT - 09/24/2024 11:59 PM CDT Hospital Encounter [address] [place] [address] Supervision of other normal , antepartum Discharge Disposition: Discharge to home or self care 09/24/2024 12:35 PM CDT Lab [facility] [address] [place] [address] Supervision of other normal , antepartum 09/24/2024 10:51 AM CDT - 09/24/2024 11:59 PM CDT Hospital Encounter [facility] Outpatient Health - Ultrasound [address] [facility], 7th Floor, [address] [place] [address] Supervision of other normal , antepartum Discharge Disposition: Discharge to home or self care 09/24/2024 11:45 AM CDT Office Visit [facility] Obstetrics and Gynecology [address] [place] [address] 7th Floor [address] [place] [phone] Supervision of other normal , antepartum (Primary Dx); Other obesity affecting in third trimester; 36 weeks gestation of 09/17/2024 9:30 AM CDT Clinical Support [facility] Obstetrics and Gynecology [address] [place] [address] 7th [place] [phone] History of IUFD (Primary Dx); Supervision of other normal , antepartum; Morbid obesity with BMI of 45.0-49.9, adult ([facility] ([facility]) from Last 3 Months Allergies Active Allergy Reactions Criticality Noted Date Comments Adhesive Rash Medium 10/14/2024 Medications [id number] c acid 29 mg iron- 1 mg [...] carried 28/01 in house: R1 (first call) [phone] R1 alt (second call) [phone] R4 (Chief) [phone] Supervision of other normal , antepartu m [...] today - GC/CT/trichomonas offered and declined - [place] Depression Scale Total: 0 - Reviewed criteria [...] Morbid obesity with BMI of 45.0-49.9, adult ([facility]) 08/12/2020 Overview (07/15/2023): - BMI 45 at [...] = 0.6 oz pur e alcohol) social [employer] Answer Date Recorded In the past 12 months has th e broadbandchoices, gas, oil, or water [employer] threatened to shut off services in your [...] week 10/15/2024 How often do you attend [facility] or christianity services? Never 10/15/2024 Do you belong to any clubs o r organizations such as christian groups, unions, fraternal or athletic groups, or [...] place to sleep or slept in a halfway (including now)? No 06/13/2022 [place] Depression Scale Answer Date Recorded [place] Depression Scale Total 0 04/01/2024 The thought [...] any time in the past 12 m [facility], were you homeless or living in a halfway (including now)? No 10/15/2024 Personal Safety Answer Date Recorded Have you ever been in or are you currently in a harmful physical or emotional relationship or is someone making you feel afraid or unsafe? 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 Not on file Not on file Not [...] Procedure Name Priority Date/Time Associated Diagnosis Comments WI AN PROCEDURE PLACEHOLDER Routine 10/14/2024 2:07 PM [...] Morbid obesity with BMI of 45.0-49.9, adult ([facility]) ([facility]) NONSTRESS TEST Routine 10/01/2024 3:44 PM CDT Morbid obesity with BMI of 45.0-49.9, adult ([facility]) ([facility]) Supervision of other normal , antepartum GROUP [...] Recently Relevant to Health Maintenance Results * WI AN PROCEDURE PLACEHOLDER (10/14/2024 2:07 PM CDT) [...] 10/14/2024 9:53 AM CDT us Parish Singer [facility] LAB BLOOD ORDERABLES Final Result Performing Organization Address [facility] de Phone Number [facility] Department [place] [address] * RPR Blood (10/14/2024 9:47 AM CDT) RPR Nonreactive Nonreactive Blood 10/14/2024 9:47 AM CDT 10/14/2024 9:53 AM CDT Parish Singer [facility] LAB MICROBIOLOGY - GENERAL ORDERABLES Final Result Performing Organization Address [facility] Co de Phone Number [facility] Department [place] [address] * (ABNORMAL) CBC without differential (10/14/2024 9:47 AM CDT) WBC 6.88 3.80 - 9.90 K/cumm Hgb 10.6(L) 11.9 - 15.5 g/dL [facility] Hct 32.2(L) 35.6 - 45.5 % [facility] Plt 190 150 - 400 K/cumm [facility] MPV 11.2 9.1 - 12.3 fL [facility] RBC 3.98 3.90 - 5.20 M/cumm [facility] MCV 80.9(L) 81.3 - 96.4 fL [facility] MCH 26.6(L) 27.1 - 33.3 pg [facility] MCHC 32.9 32.3 - 35.7 g/dL [facility] RDW CV 13.8 11.1 - 14.9 % [facility] RDW SD 40.3 35.7 - 48.1 fL [facility] NRBC abs 0.00 0.00 - 0.01 K/cumm [facility] Blood 10/14/2024 9:47 AM CDT 10/14/2024 9:53 AM CDT us Parish Singer [facility] BLOOD ORDERABLES Final Result Performing Organization Address City/[facility] de Phone Number [facility] Department [place] [address] * Type and screen (10/14/2024 9:47 AM CDT) Pathologist [facility] Liam, indirect Negative ABO Rh A Positive [facility] Blood 10/14/2024 9:47 AM CDT 10/14/2024 9:58 AM CDT Narrative [facility] - 10/14/2024 10:42 AM CDT Has the patient had Daratumumab or Isatuximab in the past 6 months?->Unknown us Parish DORANTES LAB BLOOD BANK TEST ORDERAB LES Final Result Performing Organization Address [facility]/ZIP Co de Phone Number [facility] Department [place] [address] * (ABNORMAL) Basic metabolic panel (10/14/2024 9:47 AM CDT) Sodium 139 135 - 145 mmol/L Potassium, pl 3.6 3.3 - 4.9 mmol/L [facility] Chloride 106 97 - 110 mmol/L [facility] CO2 21(L) 22 - 32 mmol/L [facility] Anion gap 12 2 - 15 mmol/L [facility] BUN 6 6 - 25 mg/dL [facility] Creatinine 0.48(L) 0.60 - 1.10 mg/dL [facility] Glucose 106 70 - 199 mg/dL [facility] Comment: Interpretive Data Fasting glucose >/= 126 [...] 2022. Calcium 9.0 8.5 - 10.3 mg/dL [facility] Blood 10/14/2024 9:47 AM CDT 10/14/2024 9:53 AM CDT us Parish Singer [facility] BLOOD ORDERABLES Final Result [facility]I [facility] Department [place] [address] * nonstress test - (10/08/2024 9:45 AM CDT) us Gertrude Reyes FISH BAIT PICKER OB GYNE ORDERABLES F inal Result * nonstress test - (10/01/2024 3:44 PM CDT) us Leah Delacruz MD OB GYNE [place] BLES Final Result * Group B streptococcal culture Vaginal/Rectal (09/24/2024 2:51 PM CDT) Pathologist [facility] Report Final Report: Negative Vaginal/Rectal 09/24/2024 2: 51 PM CDT 09/24/2024 2:57 PM CDT Narrative [facility] - 09/27/2024 12:57 PM CDT Testing performed by [facility] Microbiology Laboratory ([phone]). Jani Licona MD LAB MICROBIOLOGY - GENERA L ORDERABLES Final Result Performing Organization Address City/[facility]/ZIP Co de Phone Number [facility] Department [place] [address] * HIV 1/2 Antibody plus p24 Antigen Blood (09/24/2024 12:36 PM CDT) [facility] HIV 1/2 ab + p24 ag Nonreactive [...] L ORDERABLES Final Result Performing Organization Address City/[facility]/ZIP Co de Phone Number [facility] Department [place] [address] * (ABNORMAL) CBC without differential (09/24/2024 12:36 PM CDT) [facility] WBC 7.5 3.8 - 9.9 K/cumm Hgb 11.0(L) 11.9 - 15.5 g/dL [facility] Hct 32.2(L) 35.6 - 45.5 % [facility] Plt 166 150 - 400 K/cumm [facility] MPV 10.5 9.1 - 12.3 fL [facility] RBC 3.88(L) 3.90 - 5.20 M/cumm [facility] MCV 83.0 81.3 - 96.4 fL [facility] MCH 28.4 27.1 - 33.3 pg [facility] MCHC 34.2 32.3 - 35.7 g/dL [facility] RDW CV 13.9 11.1 - 14.9 % [facility] RDW SD 41.5 35.7 - 48.1 fL [facility] NRBC abs 0.00 0.00 - 0.01 K/cumm [facility] Blood 09/24/2024 12:3 6 PM CDT 09/24/2024 1:53 PM CDT Jani Licona MD LAB BLOOD ORDERABLES Flor su Result [facility] [place] [address] * US Ob Follow Up (09/24/2024 10:51 [...] 12:08 PM CDT) us Gertrudekiki Smith Amy FISH BAIT PICKER OB GYNE ORDERABLES F inal Result * Hepatitis C antibody Blood (04/03/2024) SCRIBED HCV ab negative Blood us Lucy Diaz MD LAB MICROBIOLOGY - GEN ERAL ORDERABLES Final Result * Pap with reflex to High Risk HPV and Genotyping (Cytology Component) (04/01/2024 1:24 PM CDT) Thin prep (Pap test) 04/01/2024 1:24 PM CDT 04/01/2024 3:30 PM CDT Narrative PATHOLOGY [facility] - 04/10/2024 3:27 PM CDT EPIC results best viewed via link to PDF [facility] [place] [address] Note to Patients: This report may contain [...] Gender: F : 1995 (Age: 28) Address: [address] [place] [phone] Hospital #: [id number] Service: PRODUCT SUPPORT SPECIALIST Location: Patient Type: [facility] SPECIMEN Taken: 04/01/2024 Received: 04/01/2024 Accessioned: 04/02/2024 [...] clinical information and biopsy results as indicated. [facility] Clinical Laboratory Improvement Amendments (CLIA) mandate that cytologic and histologic results be correlated for laboratory software quality test engineer & improvement standards. FOR ALL HIGH-GRADE CASES [...] determined by the Surgical Pathology Department at [facility] as part of an ongoing quality assurance practice manager program and in compliance with federally mandated [...] determined by the Surgical Pathology Department of [facility]. It has not been cleared or approved by the U. S. Food and Drug Administration. Lucy Diaz MD LAB CYTOLOGY ORDERABLE S Final Result PATHOLOGY [facility] 3rd Floor [place], [place] [phone] from Last 3 Months or Most Recently Relevant to Health Maintenance Insurance [facility] [employer] HMO/PPO Address: [address] [place] [id number] [facility] HMO/PPO Address: [address] [place] [phone] Advance Directives For more information, please contact: [phone] * Full Code (Latest Code Status on [...] in case of cardiopulmonary arrest Care Teams Mainspring Former Relationship Specialty Start Date End Date Mark Flores MD [address] [place] [id number] PCP - General Family Medicine 10/04/23 Lenny Mckee MD [address] [place] [address] [address] [place] [address] General Surgery 03/30/19
[2024-12-17] MEDS: KETOROLAC (*BKC) 60 MG/2 ML VIAL IM (19:57)
--- NOTE | 2024-12-17 21:26 | ED.BACK ---
HPI - Back Pain/Injury General Chief Complaint: Extremity Injury, Lower Stated Complaint: Lower Extremity Injury Time Seen by Provider: 12/17/24 19:21 Source: patient Mode of arrival: ambulatory Limitations: no limitations History of Present Illness HPI Narrative: this is a 29-year-old female that has right foot and leg pain after she dropped a railroad tie causing some bruising and pain although has good range of motion with no numbness or tingling a brisk pedal pulse on the right with good range of motion although tender with movement palpation. Has had a prior fracture to that and. MD elicited complaint: other Related Data Allergies Allergy/AdvReac Type Severity Reaction Status Date / Time No Known Allergies Allergy Verified 12/17/24 19:25 Review of Systems Review of Systems: All systems reviewed & are unremarkable except as noted in HPI and below PMFSH Past Medical History Medical History Tonsillectomy planned (~2001) Cholecystectomy planned (~2017) Swelling of ankle Diarrhea Constipation Bowel habit changes Pneumonia Outcome of delivery, other multiple , all stillborn Surgical History Surgical History [place] teeth removed (~2015) History of dilatation and curettage (~2018) Family History Family History Father Osteoarthritis High cholesterol Hypertension Mother Family history of thyroid problem Hypertension Sibling Heart problem Hypertension Autoimmune disorder Grandparent Hypertension Heart problem Social History Social History Social History: Patient has caffeine once every couple of weeks. 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 [employer] Gender identity (if verbalized by the patient): Female Sexual Orientation (if Verbalized by the Patient): Straight or Heterosexual Exam Const: General: healthy appearing and no acute distress Nutritional Appearance: well nourished and obese Orientation/consciousness: patient oriented x3 Limitations: no limitations Resp: Effort & Inspection: normal respiratory effort Auscultation: clear to auscultation bilaterally Cardio: Rate: regular rate Rhythm: regular rhythm GI: GI Palp: Yes Soft to palpation Auscultation: normal bowel sounds Skin: General skin exam: normal color Wounds: wounds noted Neuro: General: patient oriented x3, moves all extremities, no meningeal signs and no focal motor deficits Extrem: Other: Tenderness right foot and ankle and right leg with palpation and movement Course Course Emergency Course: x-rays performed show no acute fractures are acute abnormalities, patient received Toradol after reassessment patient's pain level has improved advised patient to follow-up with primary care physician. Vital Signs Vital signs: Vital Signs Temperature 37.0 C 12/17/24 19:22 Pulse Rate 76 12/17/24 19:22 Respiratory Rate 18 12/17/24 19:22 Blood Pressure 134/82 12/17/24 19:22 Pulse Oximetry 99 12/17/24 19:22 Oxygen Delivery Room Air 12/17/24 19:22 Temperature 37.0 C 12/17/24 19:22 Pulse Rate 76 12/17/24 19:22 Respiratory Rate 18 12/17/24 19:22 Blood Pressure 134/82 12/17/24 19:22 Pulse Oximetry 99 12/17/24 19:22 Oxygen Delivery Room Air 12/17/24 19:22 Critical Care Time Critical Care Time Critical Care Time: No Discharge Plan Discharge Clinical Impression: Leg sprain Patient Disposition: Home Condition: Stable Instructions: Antibiotic Form, Leg Sprain (ED) Additional Instructions: advised patient to take medication as prescribed and follow with primary care physician within the next week for further evaluation treatment. Patient Language: Belarusian Prescriptions: New naproxen 500 mg tablet 500 mg PO BID PRN (Reason: pain) Qty: 14 0RF No Action Zepbound 2.5 mg/0.5 mL pen injector 2.5 mg subcut WEEKLY Qty: 2 0RF Rx Instructions: for 4 weeks Follow-up/Referrals: Betra Paniagua DO [Primary Care Provider] - Time of Disposition: 21:30
[2024-12-17 21:46] VITALS: BP 134/81; PULSE 71; RESP 16; O2SAT 99
== END 2024-12-17 21:49 | disposition home or self-care (01) ==
PROVIDERS: Emergency Provider Emergency Medicine; PCP Family Medicine
DX: S93.601A Unspecified sprain of right foot, initial encounter (principal); W20.8XXA Other cause of strike by thrown, projected or falling object, initial encounter
CPT/HCPCS: 73590; 73610; 96372; 99284; J1885